=== PATIENT | female | born 1945 | race Asian ===

== ENCOUNTER → 2020-08-15 09:30 | Outpatient (CLI) | payer MEDICARE, SELFPAY ==
--- NOTE | 2020-08-15 | DI.MRI.S_ITS ---
PROCEDURE: MR HEAD/BRAIN WO/W CON INDICATIONS: BELLS PALSY TECHNIQUE: Noncontrast sagittal T1 spin echo, axial T2 fast spin echo, axial FLAIR, axial gradient echo, axial diffusion and ADC through the brain. Axial/sagittal/coronal 3-D CISS, thin-slice axial T1 spin echo with fat saturation through the skull base. After the administration of contrast, axial and coronal thin-slice T1 spin echo with fat saturation through the skull base, axial T1 spin echo with fat saturation through the brain. COMPARISON: None. FINDINGS: Image quality: Excellent. Cranial nerves: No cranial nerve mass or abnormal enhancement is present. No skull base meningioma is found. However, note is made of prominent ectasia of the right and left vertebral arteries which are elongated and curve strongly rightward and then traverse right anterolateral towards the midline impinging on the right lower and middle thirds of the brainstem before extending cephalad at the midline into the basilar artery. CSF spaces: Ventricles are normal in size and shape. No extra-axial fluid collections. Basal cisterns are patent. Brain: No intracranial bleeds or mass effects. No abnormal intracranial enhancement. Diffusion weighted images show no acute ischemic insults. Ibanez-white matter interface is intact. Brainstem is normal. Normal intravascular flow voids are present. Skull and face: Calvarial marrow signal is normal. Orbits appear normal. Sinuses: Sinuses and mastoids appear clear. IMPRESSION: No mass lesion found suggestive of meningioma at the skull base, no abnormal enhancement or mass involves the skull base cranial nerves. There is, however, prominent ectasia and tortuosity of the vertebral arteries which measure up to 7-8 mm in maximal axial dimension curving rightward and then anteriorly along the right lower and mid brainstem, likely impinging mildly on the immediate adjacent right-sided cranial nerves as a potential etiology for current symptomatology. Dictated by: Hank Blanco M.D. on 08/15/2020 at 11:03 Approved by: Hank Blanco M.D. on 08/15/2020 at 11:08
[2020-08-15 11:16] LABS: Add Manual Diff / Slide Review NO; Basophils Absolute Auto 100 /uL (0-100); Basophils Percent Auto 1.2 % (0-2); Eosinophils Absolute Auto 100 /uL (0-450); Eosinophils Percent Auto 1.9 % (2-4); Hematocrit 41.5 % (36-46); Hemoglobin 13.7 g/dL (12.0-16.0); Lymphocytes Absolute Auto 900 /uL (1100-4500); Lymphocytes Percent Auto 18.2 % (25-40); Mean Corpuscular HGB Conc 32.9 % (30-36); Mean Corpuscular Hemoglobin 31.2 PG (26-34); Mean Corpuscular Volume 94.9 fL (80-100); Monocytes Absolute Auto 300 /uL (0-900); Monocytes Percent Auto 5.5 % (3-14); Neutrophils Absolute Auto 3500 /uL (1500-7000); Neutrophils Percent Auto 73.2 % (50-75); Platelet Count 190 X10^3/uL (150-400); Red Blood Cell Count 4.38 X10^6/uL (4.0-5.2); Red Cell Distribution Width 14.2 % (11.6-14.8); White Blood Cell Count 4.7 X10^3/uL (4.5-11.0)
[2020-08-15 11:27] LABS: Alanine Aminotransferase 19 IU/L (<35); Albumin 4.3 g/dL (3.5-5.0); Albumin Globulin Ratio 1.4 (1.0-2.8); Alkaline Phosphatase 94 U/L (38-126); Aspartate Aminotransferase 28 IU/L (14-36); BUN Creatinine Ratio 21.1 (6-22); Bilirubin Total 0.7 mg/dL (0.2-1.3); Blood Urea Nitrogen 16 mg/dL (7-17); Calcium 9.3 mg/dL (8.4-10.2); Carbon Dioxide 32 mmol/L (22-32); Chloride 106 mmol/L (98-107); Cholesterol 173 mg/dL (140-199); Estimated Glomerular Filt Rate > 60.0 mL/min (>60); Glucose 99 mg/dL (80-110); HDL Cholesterol 69 mg/dL (40-60); HEMOLYSIS < 15 (0-50); LDL Cholesterol Calculated 78 mg/dL (<100); Potassium 4.2 mmol/L (3.4-5.1); Sodium 141 mmol/L (137-145); Total Protein 7.3 g/dL (6.3-8.2); Triglycerides 131 mg/dL (35-150)
[2020-08-15 12:01] LABS: Vitamin D 25 Hydroxy (D3) 47.6 ng/mL (30.0-100.0)
[2020-08-15 12:02] LABS: Ferritin 60 ng/mL (11-264)
[2020-08-15 12:16] LABS: Thyroid Stimulating Hormone 1.22 uIU/mL (0.47-4.68)
[2020-08-16 07:09] LABS: Triiodothyronine T3 Total 121 ng/dL (71-180)
== END ==
PROVIDERS: PCP Internal Medicine; Referring Provider Internal Medicine; Visit Provider Internal Medicine
DX: G51.0 Bell's palsy (principal); I77.1 Stricture of artery; E55.9 Vitamin D deficiency, unspecified; K59.00 Constipation, unspecified; L65.9 Nonscarring hair loss, unspecified; Z13.220 Encounter for screening for lipoid disorders
CPT/HCPCS: 36415; 70553; 80053; 80061; 82306; 82728; 84436; 84443; 84480; 85025

== ENCOUNTER → 2021-07-14 11:36 | Outpatient (CLI) | payer MEDICARE, SELFPAY ==
--- NOTE | 2021-07-14 | DI.MG.S_ITS ---
BILATERAL DIGITAL SCREENING MAMMOGRAM 3D/2D WITH CAD: 07/14/2021 CLINICAL: Routine screening. Comparison is made to exams dated: 11/13/2016 mammogram, 11/18/2017 mammogram, 12/31/2018 mammogram, and 05/02/2020 mammogram - outside facility. The tissue of both breasts is heterogeneously dense. This may lower the sensitivity of mammography. Current study was also evaluated with a Computer Aided Detection (CAD) system. No significant masses, calcifications, or other findings are seen in either breast. There has been no significant interval change. IMPRESSION: NEGATIVE There is no mammographic evidence of malignancy. A 1 year screening mammogram is recommended. This exam was interpreted at Station ID: [id number]. NOTE: For mammograms, a report in lay terms will be sent to the patient. Approximately 15% of breast malignancies will not be visualized mammographically. In the management of a palpable breast mass, a negative mammogram must not discourage biopsy of a clinically suspicious lesion. Electronically Signed By: Devon olsen/carie:07/16/2021 09:08:42 letter sent: Normal Exam ACR BI-RADS Category 1: Negative [id number]
== END ==
PROVIDERS: PCP Internal Medicine; Referring Provider Internal Medicine; Visit Provider Internal Medicine
DX: Z12.31 Encounter for screening mammogram for malignant neoplasm of breast (principal)
CPT/HCPCS: 77063; 77067

== ENCOUNTER → 2021-08-27 17:31 | Outpatient (CLI) | payer MEDICARE, SELFPAY ==
--- NOTE | 2021-08-27 17:33 | DI.MRI.S_ITS ---
PROCEDURE: MR HEAD/BRAIN WO/W CON INDICATIONS: Weakness TECHNIQUE: Noncontrast axial T1 spin echo, axial T2 fast spin echo, sagittal and axial FLAIR, coronal T2 fast spin echo, axial gradient echo, axial diffusion and ADC through the brain. After the administration of contrast, axial and coronal T1 spin echo with fat saturation through the brain. COMPARISON: [facility], MR, MR HEAD/BRAIN WO/W CON, 08/15/2020, 10:03. FINDINGS: Image quality: Excellent. CSF spaces: There is mild cerebral volume loss with prominence of the ventricles and sulci. Basal cisterns are patent. No extra-axial fluid collections. Brain: Diffusion-weighted images demonstrate no acute infarcts. No intracranial hemorrhage, mass, or mass effect. The aragon-white matter junction appears preserved. There are scattered subcortical and periventricular foci of white matter T2 hyperintensity consistent with mild chronic small vessel ischemic changes. The brainstem appears within normal limits. No abnormal intracranial enhancement. Skull and face: Calvarial marrow is normal in signal. Orbits appear normal. Sinuses: Visualized paranasal sinuses demonstrate mild mucosal thickening within the ethmoid sinuses. The mastoid air cells are clear. IMPRESSION: 1. No acute intracranial abnormality. 2. Mild chronic white matter small vessel ischemic changes and cerebral volume loss. Dictated by: Kennedy Flores M.D. on 08/28/2021 at 7:51 Approved by: Kennedy Flores M.D. on 08/28/2021 at 7:54
== END ==
PROVIDERS: PCP Internal Medicine; Referring Provider Internal Medicine; Visit Provider Internal Medicine
DX: R53.1 Weakness; I67.9 Cerebrovascular disease, unspecified
CPT/HCPCS: 70553; A9579

== ENCOUNTER → 2021-09-28 17:49 | Outpatient (CLI) | payer MEDICARE, SELFPAY ==
--- NOTE | 2021-09-28 | DI.MRI.S_ITS ---
PROCEDURE: MR LUMBAR SPINE WO CON INDICATIONS: Radiculopathy, lumbar region TECHNIQUE: Noncontrast sagittal T1 spin echo and T2 fast echo, sagittal STIR, axial T1 and T2 fast spin echo through the lumbar spine. In cases with scoliosis, additional coronal T2 fast spin echo may be performed. COMPARISON: None. FINDINGS: Image quality: Excellent. Alignment and Curvature: Mild dextrocurvature and rightward displacement of L2 related to L3. There is grade 1 retrolisthesis of L2 on L3 measuring approximately 8 mm. There is trace retrolisthesis of L3 on L4. Bone Marrow: Marrow is of normal overall signal. No acute vertebral body compression fractures. Spinal Cord: Conus medullaris terminates at the T12-L1 level. Visualized cord demonstrates normal signal and size. Paraspinous Soft Tissues: No paravertebral masses. T12-L1: Minimal disc bulge. No canal stenosis or foraminal stenosis. L1-L2: Mild disc bulge. No canal stenosis or foraminal stenosis. L2-L3: 8 mm retrolisthesis of L2 on L3. Severe disc height loss. Posterior osteophyte plus minimal disc. Facet hypertrophy. Mild canal stenosis. Mild right and hxja-ph-ipujdqyp left foraminal stenosis. L3-L4: Minimal retrolisthesis of L3 on L4. Diffuse disc bulge. Facet hypertrophy. Moderate canal stenosis is underestimated secondary to axial angle choice. L4-L5: Moderate to severe disc height loss. Disc bulge. Facet hypertrophy. Mild canal stenosis. Iweg-ih-wzvzjzgq bilateral foraminal stenosis. L5-S1: Disc bulge. Bilateral facet hypertrophy, left greater than right. Mild bilateral foraminal narrowing. IMPRESSION: 1. Diffuse degenerative change. 2. Canal stenosis is mild at L2-L3, moderate at L3-L4, and mild at L4-L5. 3. Multilevel foraminal narrowing as described above. 4. Multilevel facet arthropathy. Dictated by: Roldan Chavez M.D. on 10/01/2021 at 8:21 Approved by: Roladn Chavez M.D. on 10/01/2021 at 8:28
== END ==
PROVIDERS: PCP Internal Medicine; Referring Provider Psychiatry & Neurology Neurology; Visit Provider Psychiatry & Neurology Neurology
DX: M54.16 Radiculopathy, lumbar region (principal); M48.061 Spinal stenosis, lumbar region without neurogenic claudication; M48.07 Spinal stenosis, lumbosacral region; M47.816 Spondylosis without myelopathy or radiculopathy, lumbar region; M47.817 Spondylosis without myelopathy or radiculopathy, lumbosacral region
CPT/HCPCS: 72148

== ENCOUNTER 2021-10-31 16:45 | Outpatient (RCR) | payer MEDICARE, SELFPAY ==
--- NOTE | 2021-10-10 17:30 | PT.OPPOC ---
Physical, Occupational & Speech Therapy At [facility] Current Diagnoses Stiffness of other specified joint, not elsewhere classified (10/10/21) Lumbago with sciatica, right side (10/10/21) Weakness (10/10/21) Visit Care Team Role Provider Type Rosa Hull MD Attending Provider Physician Family Provider Primary Care Provider Referring Provider Specialty: Internal Medicine Address: [address] [place] [address], [facility] Email: [email or web address] Plan Of Care PT-OP-T Assessment and Plan Start: 10/10/21 17:37 Freq: Status: Active Protocol: Document 10/10/21 16:45 DCW (Rec: 10/11/21 14:09 DCW [id number]) Physical Therapy Assessment Rehab Potential Rehabilitation Potential Good Evaluation Complexity Number of Personal Factors/Comorbidities 1-2 Number of Body Systems Impaired 1-2 Clinical Presentation at Evaluation Stable Impairments Impairments Functional Activities, Functional Mobility,Pain,ROM, Soft Tissue Mobility,Strength, Tone Goals Two Impairment Pt displays weakness in R hip IR/ER Long-Term Goal (LTG) Pt to increase R hip MMT to at least 4+ in all planes to improve stability and confidence when ascending/ descending stairs LTG Duration 12/08/21 One Impairment Pt experiencing radicular R LE pain with sitting longer than 30 min 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 Pt Pt has moderate muscle tone in right QL and piriformis, as well as an MRI showing mild-moderate stenosis and multiple disc bulges. Pt reported relief with manual traction, as well as noted decreased symptoms after QL and piriformis stretching. Pt will likely benefit from continued therapy focusing on STM, flexibility, strengthening, and traction. Physical Therapy Plan Frequency and Duration Frequency of Treatment 1-2x/week Duration of Treatment Two months Plan of Care Start Date 10/10/21 Plan of Care End Date 12/08/21 Therapeutic Interventions Therapeutic Interventions Aquatic Therapy,Home Exercise Program,Joint Mobilizations, Manual Therapy,Patient/ Caregiver Education,Self-Care/ Home Management,Therapeutic Activities,Therapeutic Exercises Modalities Cold Pack/Ice Massage,Electric Stimulation,Hot Packs, Traction- Mechanical, Ultrasound Next Visit Focus/Plan Next Note Type Treatment Note Next Visit Plan Stretching, strengthening, traction Plan of Care Dates Plan of Care Start Date 10/10/21 Plan of Care End Date 12/08/21 Electronically Signed by: Uriah Montenegro, PT 10/11/21 1411 Please Sign and Return: I have reviewed this Plan of Care and certify that the skilled therapy services above are required to meet the patient?s needs. Physician Signature Date Printed Name and Credentials Clinical Instructor Signature Printed Name and Credentials
--- NOTE | 2021-10-10 17:30 | PT.OIE ---
Current Diagnoses Stiffness of other specified joint, not elsewhere classified (10/10/21) Lumbago with sciatica, right side (10/10/21) Weakness (10/10/21) Visit Care Team Role Provider Type Rosa Hull MD Attending Provider Physician Family Provider Primary Care Provider Referring Provider Specialty: Internal Medicine Address: [address] [place] [address], [id number] Email: [email or web address] Initial Evaluation PT-OP-A Visit Information Start: 10/10/21 17:37 Freq: Status: Active Protocol: Document 10/10/21 16:45 DCW (Rec: 10/10/21 17:49 DCW [id number]) Out-Patient Physical Therapy Visit Information Visit Information Visit Type Initial Evaluation Visit Start Time 16:45 Visit Stop Time 17:30 Total Visit Minutes 45 Visit Number 1 Number of QUANTITATIVE ASSOCIATE Visits 0 Evaluation Information Evaluation Date 10/10/21 PT-OP-B Current Condition Start: 10/10/21 17:37 Freq: Status: Active Protocol: Document 10/10/21 16:45 DCW (Rec: 10/10/21 17:49 DCW [id number]) Current Condition History of Current Condition Onset Date June 2021 Current Complaints Right leg pain and weakness History of Current Condition Pt is a 76 year old female presenting with low back and right leg pain. Pt notes that she was on a cross[place]country flight in June, and began getting pain and stiffness during the flight. Pt notes she has a history of low back pain, but it typically goes away after a few hours, and this has been sustained for the last three months. Was seen for one visit at [facility] earlier this month, and received some good home exercises, but was unable to work with their scheduling due to her need for late appointments. Pt also notes she got an exercise online that helped, and demonstrates sciatic flossing. Admits her right leg is kind of weak. Notes she did receive an MRI two weeks ago, but has not heard anything about the results yet. Prior Treatments and Tests Lumbar MRI: IMPRESSION: 1. Diffuse degenerative change. 2 . Canal stenosis is mild at L2 -L3, moderate at L3-L4, and mild at L4-L5. 3. Multilevel foraminal narrowing as described above. 4. Multilevel facet arthropathy. per Roldan Chavez M.D. on 2021 Treatment Goals Patient/Caregiver Goals Eliminate right leg pain PT-OP-C Subjective Start: 10/10/21 17:37 Freq: Status: Active Protocol: Document 10/10/21 16:45 DCW (Rec: 10/10/21 17:53 DCW [id number]) OP-PT Subjective Patient Comments Patient Comments Is this sort of thing even fixable? Patient Reported Progress Improving OP-PT Pain Assessment Pain Assessment Grid Paper Pain Assessment Grid Completed Yes Location Right Posterior Lateral Hip Intensity 4 Scale Used Numeric (0 - 10) Description Shooting,Spasm PT-OP-F Manual Assessment Start: 10/10/21 17:37 Freq: Status: Active Protocol: Document 10/10/21 16:45 DCW (Rec: 10/11/21 13:55 DCW [id number]) Manual Assessments Soft Tissue Assessment Soft Tissue Mobility Assessment Moderate tone with tenderness to palpation 2/4: Pain with wincing along right QL and piriformis Joint Mobility Assessment Joint Mobility Assessment Hypomobility with joint mobilization on L1-5 PT-OP-K Range of Motion Start: 10/10/21 17:37 Freq: Status: Active Protocol: Document 10/10/21 16:45 DCW (Rec: 10/11/21 13:55 DCW [id number]) Lumbar Spine Range of Motion Lumbar Spine Active Percentage Testing Position Standing Flexion 60 Extension 80 Lateral Flexion Left 90 Lateral Flexion Right 90 ROM Limitations Bony Restriction Comments Limited lumbar flexion, compensatory mobility through bilateral hips when bending forward PT-OP-L Special Tests Start: 10/10/21 17:37 Freq: Status: Active Protocol: Document 10/10/21 16:45 DCW (Rec: 10/11/21 13:55 DCW [id number]) Special Tests Lumbar Spine Special Tests Straight Leg Raise Test Results Negative Slump Test Results Negative Manual Traction Test Results Pt notes improvement A-P Shearing Test Results Negative Hip Special Tests Piriformis Test Results Mild soreness, no replication of symptoms Tripod Sign Test Results Negative EDIS Test Results Negative PT-OP-M Strength Start: 10/10/21 17:37 Freq: Status: Active Protocol: Document 10/10/21 16:45 DCW (Rec: 10/11/21 13:55 DCW [id number]) Hip Strength Hip Manual Muscle Testing Right Flexion (L2) 4+ Good+ Abduction 4- Good- Adduction 4+ Good+ External Rotation 4- Good- Internal Rotation 4- Good- Left Flexion (L2) 4+ Good+ Abduction 4+ Good+ Adduction 4+ Good+ External Rotation 4+ Good+ Internal Rotation 4+ Good+ PT-OP-Q Treatments Start: 10/10/21 17:37 Freq: Status: Active Protocol: Document 10/10/21 16:45 DCW (Rec: 10/10/21 17:51 DCW [id number]) Therapeutic Exercises Sitting Exercises 2 Sitting Exercise Name Lateral trunk flexion stretch Side bilateral 1 Sitting Exercise Name Seated figure-4 Side bilateral PT-OP-T Assessment and Plan Start: 10/10/21 17:37 Freq: Status: Active Protocol: Document 10/10/21 16:45 DCW (Rec: 10/11/21 14:09 DCW [id number]) Physical Therapy Assessment Rehab Potential Rehabilitation Potential Good Evaluation Complexity Number of Personal Factors/Comorbidities 1-2 Number of Body Systems Impaired 1-2 Clinical Presentation at Evaluation Stable Impairments Impairments Functional Activities, Functional Mobility,Pain,ROM, Soft Tissue Mobility,Strength, Tone Goals Two Impairment Pt displays weakness in R hip IR/ER Intermediate Goal (LTG) Pt to increase R hip MMT to at least 4+ in all planes to improve stability and confidence when ascending/ descending stairs LTG Duration 12/08/21 One Impairment Pt experiencing radicular R LE pain with sitting longer than 30 min 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 Pt Pt has moderate muscle tone in right QL and piriformis, as well as an MRI showing mild-moderate stenosis and multiple disc bulges. Pt reported relief with manual traction, as well as noted decreased symptoms after QL and piriformis stretching. Pt will likely benefit from continued therapy focusing on STM, flexibility, strengthening, and traction. Physical Therapy Plan Frequency and Duration Frequency of Treatment 1-2x/week Duration of Treatment Two months Plan of Care Start Date 10/10/21 Plan of Care End Date 12/08/21 Therapeutic Interventions Therapeutic Interventions Aquatic Therapy,Home Exercise Program,Joint Mobilizations, Manual Therapy,Patient/ Caregiver Education,Self-Care/ Home Management,Therapeutic Activities,Therapeutic Exercises Modalities Cold Pack/Ice Massage,Electric Stimulation,Hot Packs, Traction- Mechanical, Ultrasound Next Visit Focus/Plan Next Note Type Treatment Note Next Visit Plan Stretching, strengthening, traction
--- NOTE | 2021-10-16 17:32 | PT.OTN ---
Current Diagnoses Stiffness of other specified joint, not elsewhere classified (10/16/21) Lumbago with sciatica, right side (10/16/21) Weakness (10/16/21) Physical Therapy Treatment Note PT-OP-A Visit Information Start: 10/10/21 17:37 Freq: Status: Active Protocol: Document 10/16/21 16:51 DCW (Rec: 10/16/21 17:32 DCW [id number]) Out-Patient Physical Therapy Visit Information Visit Information Visit Type Treatment Note Visit Start Time 16:51 Visit Stop Time 17:30 Total Visit Minutes 39 Visit Number 2 Number of SCRAP HOIST OPERATOR Visits 0 Evaluation Information Evaluation Date 10/10/21 PT-OP-B Current Condition Start: 10/10/21 17:37 Freq: Status: Active Protocol: Document 10/10/21 16:45 DCW (Rec: 10/10/21 17:49 DCW [id number]) Current Condition History of Current Condition Onset Date June 2021 Current Complaints Right leg pain and weakness History of Current Condition Pt is a 76 year old female presenting with low back and right leg pain. Pt notes that she was on a cross-country flight in June, and began getting pain and stiffness during the flight. Pt notes she has a history of low back pain, but it typically goes away after a few hours, and this has been sustained for the last three months. Was seen for one visit at [facility] earlier this month, and received some good home exercises, but was unable to work with their scheduling due to her need for late appointments. Pt also notes she got an exercise online that helped, and demonstrates sciatic flossing. Admits her right leg is kind of weak. Notes she did receive an MRI two weeks ago, but has not heard anything about the results yet. Prior Treatments and Tests Lumbar MRI: IMPRESSION: 1. Diffuse degenerative change. 2 . Canal stenosis is mild at L2 -L3, moderate at L3-L4, and mild at L4-L5. 3. Multilevel foraminal narrowing as described above. 4. Multilevel facet arthropathy. per Roldan Chavez M.D. on 2021 Treatment Goals Patient/Caregiver Goals Eliminate right leg pain PT-OP-C Subjective Start: 10/10/21 17:37 Freq: Status: Active Protocol: Document 10/16/21 16:51 DCW (Rec: 10/16/21 17:32 DCW [id number]) OP-PT Subjective Patient Comments Patient Comments Pt reports she has been doing her stretching every day, and it has been helping. PT-OP-F Manual Assessment Start: 10/10/21 17:37 Freq: Status: Active Protocol: Document 10/10/21 16:45 DCW (Rec: 10/11/21 13:55 DCW [id number]) Manual Assessments Soft Tissue Assessment Soft Tissue Mobility Assessment Moderate tone with tenderness to palpation 2/4: Pain with wincing along right QL and piriformis Joint Mobility Assessment Joint Mobility Assessment Hypomobility with joint mobilization on L1-5 PT-OP-K Range of Motion Start: 10/10/21 17:37 Freq: Status: Active Protocol: Document 10/10/21 16:45 DCW (Rec: 10/11/21 13:55 DCW [id number]) Lumbar Spine Range of Motion Lumbar Spine Active Percentage Testing Position Standing Flexion 60 Extension 80 Lateral Flexion Left 90 Lateral Flexion Right 90 ROM Limitations Bony Restriction Comments Limited lumbar flexion, compensatory mobility through bilateral hips when bending forward PT-OP-L Special Tests Start: 10/10/21 17:37 Freq: Status: Active Protocol: Document 10/10/21 16:45 DCW (Rec: 10/11/21 13:55 DCW [id number]) Special Tests Lumbar Spine Special Tests Straight Leg Raise Test Results Negative Slump Test Results Negative Manual Traction Test Results Pt notes improvement A-P Shearing Test Results Negative Hip Special Tests Piriformis Test Results Mild soreness, no replication of symptoms Tripod Sign Test Results Negative EDIS Test Results Negative PT-OP-M Strength Start: 10/10/21 17:37 Freq: Status: Active Protocol: Document 10/10/21 16:45 DCW (Rec: 10/11/21 13:55 DCW [id number]) Hip Strength Hip Manual Muscle Testing Right Flexion (L2) 4+ Good+ Abduction 4- Good- Adduction 4+ Good+ External Rotation 4- Good- Internal Rotation 4- Good- Left Flexion (L2) 4+ Good+ Abduction 4+ Good+ Adduction 4+ Good+ External Rotation 4+ Good+ Internal Rotation 4+ Good+ PT-OP-Q Treatments Start: 10/10/21 17:37 Freq: Status: Active Protocol: Document 10/16/21 16:51 DCW (Rec: 10/16/21 17:32 DCW [id number]) Therapeutic Exercises Sidelying Exercises 1 Sidelying Exercise Name Reverse clamshell Standing Exercises 1 Standing Exercise Name Hip extension Side bilateral Resistance Red Equipment Used T-band Other Exercises 1 Other Exercise Name Resisted side-stepping, forward, backward Resistance Red Equipment Used T-band Manual Therapy Treatment Soft Tissue Mobilization 1 Body Location R piriformis Mobilization Type Strumming,Sustained Pressure Manual Traction Lumbar Details Long-axis LE traction PT-OP-T Assessment and Plan Start: 10/10/21 17:37 Freq: Status: Active Protocol: Document 10/16/21 16:51 DCW (Rec: 10/16/21 17:32 DCW [id number]) Physical Therapy Assessment Impairments Impairments Functional Activities, Functional Mobility,Pain,ROM, Soft Tissue Mobility,Strength, Tone Goals Two Impairment Pt displays weakness in R hip IR/ER Bridge Builder Goal (LTG) Pt to increase R hip MMT to at least 4+ in all planes to improve stability and confidence when ascending/ descending stairs LTG Duration 12/08/21 One Impairment Pt experiencing radicular R LE pain with sitting longer than 30 min Half-Way Goal (LTG) Pt to report ability to drive to [place] without increased radicular symptoms LTG Duration 12/08/21 Assessment Summary Assessment Pt progressing well with hip and low back mobility, very compliant with HEP, performing stretching and strengthening regularly. Noticeable improvement with tone today following STM. Physical Therapy Plan Frequency and Duration Frequency of Treatment 1-2x/week Duration of Treatment Two months Plan of Care Start Date 10/10/21 Plan of Care End Date 12/08/21 Therapeutic Interventions Therapeutic Interventions Aquatic Therapy,Home Exercise Program,Joint Mobilizations, Manual Therapy,Patient/ Caregiver Education,Self-Care/ Home Management,Therapeutic Activities,Therapeutic Exercises Modalities Cold Pack/Ice Massage,Electric Stimulation,Hot Packs, Traction- Mechanical, Ultrasound Next Visit Focus/Plan Next Note Type Treatment Note Next Visit Plan Stretching, strengthening, traction
--- NOTE | 2021-10-23 17:34 | PT.OTN ---
Current Diagnoses Stiffness of other specified joint, not elsewhere classified (10/23/21) Lumbago with sciatica, right side (10/23/21) Weakness (10/23/21) Physical Therapy Treatment Note PT-OP-A Visit Information Start: 10/10/21 17:37 Freq: Status: Active Protocol: Document 10/23/21 16:45 DCW (Rec: 10/23/21 17:34 DCW [id number]) Out-Patient Physical Therapy Visit Information Visit Information Visit Type Treatment Note Visit Start Time 16:45 Visit Stop Time 17:30 Total Visit Minutes 45 Visit Number 3 Number of LEAD JAVA PROGRAMMER Visits 0 Evaluation Information Evaluation Date 10/10/21 PT-OP-B Current Condition Start: 10/10/21 17:37 Freq: Status: Active Protocol: Document 10/10/21 16:45 DCW (Rec: 10/10/21 17:49 DCW [id number]) Current Condition History of Current Condition Onset Date June 2021 Current Complaints Right leg pain and weakness History of Current Condition Pt is a 76 year old female presenting with low back and right leg pain. Pt notes that she was on a cross[place]country flight in June, and began getting pain and stiffness during the flight. Pt notes she has a history of low back pain, but it typically goes away after a few hours, and this has been sustained for the last three months. Was seen for one visit at [facility] earlier this month, and received some good home exercises, but was unable to work with their scheduling due to her need for late appointments. Pt also notes she got an exercise online that helped, and demonstrates sciatic flossing. Admits her right leg is kind of weak. Notes she did receive an MRI two weeks ago, but has not heard anything about the results yet. Prior Treatments and Tests Lumbar MRI: IMPRESSION: 1. Diffuse degenerative change. 2 . Canal stenosis is mild at L2 -L3, moderate at L3-L4, and mild at L4-L5. 3. Multilevel foraminal narrowing as described above. 4. Multilevel facet arthropathy. per Roldan Chavez M.D. on 2021 Treatment Goals Patient/Caregiver Goals Eliminate right leg pain PT-OP-C Subjective Start: 10/10/21 17:37 Freq: Status: Active Protocol: Document 10/23/21 16:45 DCW (Rec: 10/23/21 17:34 DCW [id number]) OP-PT Subjective Patient Comments Patient Comments Pt noticing some improvement, experiencing R leg pain/ weakness much less frequrently . PT-OP-F Manual Assessment Start: 10/10/21 17:37 Freq: Status: Active Protocol: Document 10/10/21 16:45 DCW (Rec: 10/11/21 13:55 DCW [id number]) Manual Assessments Soft Tissue Assessment Soft Tissue Mobility Assessment Moderate tone with tenderness to palpation 2/4: Pain with wincing along right QL and piriformis Joint Mobility Assessment Joint Mobility Assessment Hypomobility with joint mobilization on L1-5 PT-OP-K Range of Motion Start: 10/10/21 17:37 Freq: Status: Active Protocol: Document 10/10/21 16:45 DCW (Rec: 10/11/21 13:55 DCW [id number]) Lumbar Spine Range of Motion Lumbar Spine Active Percentage Testing Position Standing Flexion 60 Extension 80 Lateral Flexion Left 90 Lateral Flexion Right 90 ROM Limitations Bony Restriction Comments Limited lumbar flexion, compensatory mobility through bilateral hips when bending forward PT-OP-L Special Tests Start: 10/10/21 17:37 Freq: Status: Active Protocol: Document 10/10/21 16:45 DCW (Rec: 10/11/21 13:55 DCW [id number]) Special Tests Lumbar Spine Special Tests Straight Leg Raise Test Results Negative Slump Test Results Negative Manual Traction Test Results Pt notes improvement A-P Shearing Test Results Negative Hip Special Tests Piriformis Test Results Mild soreness, no replication of symptoms Tripod Sign Test Results Negative EDIS Test Results Negative PT-OP-M Strength Start: 10/10/21 17:37 Freq: Status: Active Protocol: Document 10/10/21 16:45 DCW (Rec: 10/11/21 13:55 DCW [id number]) Hip Strength Hip Manual Muscle Testing Right Flexion (L2) 4+ Good+ Abduction 4- Good- Adduction 4+ Good+ External Rotation 4- Good- Internal Rotation 4- Good- Left Flexion (L2) 4+ Good+ Abduction 4+ Good+ Adduction 4+ Good+ External Rotation 4+ Good+ Internal Rotation 4+ Good+ PT-OP-Q Treatments Start: 10/10/21 17:37 Freq: Status: Active Protocol: Document 10/23/21 16:45 DCW (Rec: 10/23/21 17:34 [facility] [id number]) Therapeutic Exercises Standing Exercises 1 Standing Exercise Name Hip extension Side bilateral Resistance Red Equipment Used T-band Other Exercises 2 Other Exercise Name Hip ER/IR /c knee on stool Side bilateral Resistance Red Equipment Used T-band 1 Other Exercise Name Resisted side-stepping, forward, backward Resistance Red Equipment Used T-band Manual Therapy Treatment Soft Tissue Mobilization 1 Body Location R piriformis Mobilization Type Strumming,Sustained Pressure Manual Traction Lumbar Details Long-axis LE traction PT-OP-T Assessment and Plan Start: 10/10/21 17:37 Freq: Status: Active Protocol: Document 10/23/21 16:45 DCW (Rec: 10/23/21 17:34 [facility] [id number]) Physical Therapy Assessment Impairments Impairments Functional Activities, Functional Mobility,Pain,ROM, Soft Tissue Mobility,Strength, Tone Goals Two Impairment Pt displays weakness in R hip IR/ER Manager Money Goal (LTG) Pt to increase R hip MMT to at least 4+ in all planes to improve stability and confidence when ascending/ descending stairs LTG Duration 12/08/21 One Impairment Pt experiencing radicular R LE pain with sitting longer than 30 min Custodial Goal (LTG) Pt to report ability to drive to [place] without increased radicular symptoms LTG Duration 12/08/21 Assessment Summary Assessment Pt making good progress so far , admits she feels more confident that she is going to resolve her pain, and know what to do if it comes back. Physical Therapy Plan Frequency and Duration Frequency of Treatment 1-2x/week Duration of Treatment Two months Plan of Care Start Date 10/10/21 Plan of Care End Date 12/08/21 Therapeutic Interventions Therapeutic Interventions Aquatic Therapy,Home Exercise Program,Joint Mobilizations, Manual Therapy,Patient/ Caregiver Education,Self-Care/ Home Management,Therapeutic Activities,Therapeutic Exercises Modalities Cold Pack/Ice Massage,Electric Stimulation,Hot Packs, Traction- Mechanical, Ultrasound Next Visit Focus/Plan Next Note Type Treatment Note Next Visit Plan Stretching, strengthening, traction
--- NOTE | 2021-10-31 17:32 | PT.OTN ---
Current Diagnoses Stiffness of other specified joint, not elsewhere classified (10/31/21) Lumbago with sciatica, right side (10/31/21) Weakness (10/31/21) Physical Therapy Treatment Note PT-OP-A Visit Information Start: 10/10/21 17:37 Freq: Status: Active Protocol: Document 10/31/21 16:46 DCW (Rec: 10/31/21 17:32 DCW [id number]) Out-Patient Physical Therapy Visit Information Visit Information Visit Type Treatment Note Visit Start Time 16:46 Visit Stop Time 17:30 Total Visit Minutes 44 Visit Number 4 Number of MOISTURE TESTER Visits 0 Evaluation Information Evaluation Date 10/10/21 PT-OP-B Current Condition Start: 10/10/21 17:37 Freq: Status: Active Protocol: Document 10/10/21 16:45 DCW (Rec: 10/10/21 17:49 DCW [id number]) Current Condition History of Current Condition Onset Date June 2021 Current Complaints Right leg pain and weakness History of Current Condition Pt is a 76 year old female presenting with low back and right leg pain. Pt notes that she was on a cross[place]country flight in June, and began getting pain and stiffness during the flight. Pt notes she has a history of low back pain, but it typically goes away after a few hours, and this has been sustained for the last three months. Was seen for one visit at [facility] earlier this month, and received some good home exercises, but was unable to work with their scheduling due to her need for late appointments. Pt also notes she got an exercise online that helped, and demonstrates sciatic flossing. Admits her right leg is kind of weak. Notes she did receive an MRI two weeks ago, but has not heard anything about the results yet. Prior Treatments and Tests Lumbar MRI: IMPRESSION: 1. Diffuse degenerative change. 2 . Canal stenosis is mild at L2 -L3, moderate at L3-L4, and mild at L4-L5. 3. Multilevel foraminal narrowing as described above. 4. Multilevel facet arthropathy. per Roldan Chavez M.D. on 2021 Treatment Goals Patient/Caregiver Goals Eliminate right leg pain PT-OP-C Subjective Start: 10/10/21 17:37 Freq: Status: Active Protocol: Document 10/31/21 16:46 DCW (Rec: 10/31/21 17:32 DCW [id number]) OP-PT Subjective Patient Comments Patient Comments There's still just a slightly sore feeling sometimes. It used to be it was pretty bad when I got [place] in [place], but now Idon't need ot worry about that. PT-OP-F Manual Assessment Start: 10/10/21 17:37 Freq: Status: Active Protocol: Document 10/10/21 16:45 DCW (Rec: 10/11/21 13:55 DCW [id number]) Manual Assessments Soft Tissue Assessment Soft Tissue Mobility Assessment Moderate tone with tenderness to palpation 2/4: Pain with wincing along right QL and piriformis Joint Mobility Assessment Joint Mobility Assessment Hypomobility with joint mobilization on L1-5 PT-OP-K Range of Motion Start: 10/10/21 17:37 Freq: Status: Active Protocol: Document 10/10/21 16:45 DCW (Rec: 10/11/21 13:55 DCW [id number]) Lumbar Spine Range of Motion Lumbar Spine Active Percentage Testing Position Standing Flexion 60 Extension 80 Lateral Flexion Left 90 Lateral Flexion Right 90 ROM Limitations Bony Restriction Comments Limited lumbar flexion, compensatory mobility through bilateral hips when bending forward PT-OP-L Special Tests Start: 10/10/21 17:37 Freq: Status: Active Protocol: Document 10/10/21 16:45 DCW (Rec: 10/11/21 13:55 DCW [id number]) Special Tests Lumbar Spine Special Tests Straight Leg Raise Test Results Negative Slump Test Results Negative Manual Traction Test Results Pt notes improvement A-P Shearing Test Results Negative Hip Special Tests Piriformis Test Results Mild soreness, no replication of symptoms Tripod Sign Test Results Negative EDIS Test Results Negative PT-OP-M Strength Start: 10/10/21 17:37 Freq: Status: Active Protocol: Document 10/10/21 16:45 DCW (Rec: 10/11/21 13:55 DCW [id number]) Hip Strength Hip Manual Muscle Testing Right Flexion (L2) 4+ Good+ Abduction 4- Good- Adduction 4+ Good+ External Rotation 4- Good- Internal Rotation 4- Good- Left Flexion (L2) 4+ Good+ Abduction 4+ Good+ Adduction 4+ Good+ External Rotation 4+ Good+ Internal Rotation 4+ Good+ PT-OP-Q Treatments Start: 10/10/21 17:37 Freq: Status: Active Protocol: Document 10/31/21 16:46 DCW (Rec: 10/31/21 17:32 DCW [id number]) Therapeutic Exercises Standing Exercises 2 Standing Exercise Name Hip Abduction Side bilateral Resistance Red Equipment Used T-band 1 Standing Exercise Name Hip extension Side bilateral Resistance Red Equipment Used T-band Other Exercises 2 Other Exercise Name Hip ER/IR /c knee on stool Side bilateral Resistance Red Equipment Used T-band 1 Other Exercise Name Resisted side-stepping, forward, backward Resistance Red Equipment Used T-band Manual Therapy Treatment Soft Tissue Mobilization 1 Body Location R piriformis Mobilization Type Strumming,Sustained Pressure Manual Traction Lumbar Details Long-axis LE traction PT-OP-T Assessment and Plan Start: 10/10/21 17:37 Freq: Status: Active Protocol: Document 10/31/21 16:46 DCW (Rec: 10/31/21 17:32 DCW [id number]) Physical Therapy Assessment Impairments Impairments Functional Activities, Functional Mobility,Pain,ROM, Soft Tissue Mobility,Strength, Tone Goals Two Impairment Pt displays weakness in R hip IR/ER System Development Engineer Goal (LTG) Pt to increase R hip MMT to at least 4+ in all planes to improve stability and confidence when ascending/ descending stairs LTG Duration 12/08/21 One Impairment Pt experiencing radicular R LE pain with sitting longer than 30 min Fpc Goal (LTG) Pt to report ability to drive to [place] without increased radicular symptoms LTG Duration 12/08/21 Assessment Summary Assessment Pt feeling very good at the moment, no complaints of continued pain. Agreeable with canceling next week's appointment to see if she is able to remain pain-free without therapy. Physical Therapy Plan Frequency and Duration Frequency of Treatment 1-2x/week Duration of Treatment Two months Plan of Care Start Date 10/10/21 Plan of Care End Date 12/08/21 Therapeutic Interventions Therapeutic Interventions Aquatic Therapy,Home Exercise Program,Joint Mobilizations, Manual Therapy,Patient/ Caregiver Education,Self-Care/ Home Management,Therapeutic Activities,Therapeutic Exercises Modalities Cold Pack/Ice Massage,Electric Stimulation,Hot Packs, Traction- Mechanical, Ultrasound Next Visit Focus/Plan Next Note Type Treatment Note Next Visit Plan Stretching, strengthening, traction
--- NOTE | 2021-11-08 17:41 | PT.OPDS ---
Current Diagnoses Stiffness of other specified joint, not elsewhere classified (10/31/21) Lumbago with sciatica, right side (10/31/21) Weakness (10/31/21) Visit Care Team Role Provider Type Rosa Hull MD Attending Provider Physician Family Provider Primary Care Provider Referring Provider Specialty: Internal Medicine [address]: [address] [place] [address], [id number] Email: [email or web address] Visit Number Visit Number 4 Discharge Summary PT-OP-B Current Condition Start: 10/10/21 17:37 Freq: Status: Active Protocol: Document 10/10/21 16:45 DCW (Rec: 10/10/21 17:49 DCW [id number]) Current Condition History of Current Condition Onset Date June 2021 Current Complaints Right leg pain and weakness History of Current Condition Pt is a 76 year old female presenting with low back and right leg pain. Pt notes that she was on a cross[place]country flight in June, and began getting pain and stiffness during the flight. Pt notes she has a history of low back pain, but it typically goes away after a few hours, and this has been sustained for the last three months. Was seen for one visit at [facility] earlier this month, and received some good home exercises, but was unable to work with their scheduling due to her need for late appointments. Pt also notes she got an exercise online that helped, and demonstrates sciatic flossing. Admits her right leg is kind of weak. Notes she did receive an MRI two weeks ago, but has not heard anything about the results yet. Prior Treatments and Tests Lumbar MRI: IMPRESSION: 1. Diffuse degenerative change. 2 . Canal stenosis is mild at L2 -L3, moderate at L3-L4, and mild at L4-L5. 3. Multilevel foraminal narrowing as described above. 4. Multilevel facet arthropathy. per Roldan Chavez M.D. on 2021 Treatment Goals Patient/Caregiver Goals Eliminate right leg pain PT-OP-C Subjective Start: 10/10/21 17:37 Freq: Status: Active Protocol: Document 10/31/21 16:46 DCW (Rec: 10/31/21 17:32 DCW [id number]) OP-PT Subjective Patient Comments Patient Comments There's still just a slightly sore feeling sometimes. It used to be it was pretty bad [place], but now Idon't need ot worry about that. PT-OP-F Manual Assessment Start: 10/10/21 17:37 Freq: Status: Active Protocol: Document 10/10/21 16:45 DCW (Rec: 10/11/21 13:55 DCW [id number]) Manual Assessments Soft Tissue Assessment Soft Tissue Mobility Assessment Moderate tone with tenderness to palpation 2/4: Pain with wincing along right QL and piriformis Joint Mobility Assessment Joint Mobility Assessment Hypomobility with joint mobilization on L1-5 PT-OP-K Range of Motion Start: 10/10/21 17:37 Freq: Status: Active Protocol: Document 10/10/21 16:45 DCW (Rec: 10/11/21 13:55 DCW [id number]) Lumbar Spine Range of Motion Lumbar Spine Active Percentage Testing Position Standing Flexion 60 Extension 80 Lateral Flexion Left 90 Lateral Flexion Right 90 ROM Limitations Bony Restriction Comments Limited lumbar flexion, compensatory mobility through bilateral hips when bending forward PT-OP-L Special Tests Start: 10/10/21 17:37 Freq: Status: Active Protocol: Document 10/10/21 16:45 DCW (Rec: 10/11/21 13:55 DCW [id number]) Special Tests Lumbar Spine Special Tests Straight Leg Raise Test Results Negative Slump Test Results Negative Manual Traction Test Results Pt notes improvement A-P Shearing Test Results Negative Hip Special Tests Piriformis Test Results Mild soreness, no replication of symptoms Tripod Sign Test Results Negative EDIS Test Results Negative PT-OP-M Strength Start: 10/10/21 17:37 Freq: Status: Active Protocol: Document 10/10/21 16:45 DCW (Rec: 10/11/21 13:55 DCW [id number]) Hip Strength Hip Manual Muscle Testing Right Flexion (L2) 4+ Good+ Abduction 4- Good- Adduction 4+ Good+ External Rotation 4- Good- Internal Rotation 4- Good- Left Flexion (L2) 4+ Good+ Abduction 4+ Good+ Adduction 4+ Good+ External Rotation 4+ Good+ Internal Rotation 4+ Good+ PT-OP-T Assessment and Plan Start: 10/10/21 17:37 Freq: Status: Active Protocol: Document 02/24/22 17:39 DCW (Rec: 11/08/21 17:41 DCW [id number]) Physical Therapy Assessment Goals Two Impairment Pt displays weakness in R hip IR/ER Dairy Lab 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 Physical Therapy Plan Discharge Physical Therapy Discharge Reasons Patient Request Next Visit Focus/Plan Next Note Type Discharge Summary
== END 2021-11-09 09:48 | disposition home or self-care (01) ==
LOC: PHYS 16:45
PROVIDERS: Family Provider Internal Medicine; PCP Internal Medicine; Referring Provider Internal Medicine; Visit Provider Internal Medicine
DX: R53.1 Weakness (principal); M54.41 Lumbago with sciatica, right side; M25.69 Stiffness of other specified joint, not elsewhere classified
CPT/HCPCS: 97110; 97140; 97161

== ENCOUNTER → 2022-05-24 11:02 | Outpatient (CLI) | payer MEDICARE, SELFPAY | PROVIDERS: Family Provider Internal Medicine; PCP Internal Medicine; Referring Provider Internal Medicine; Visit Provider Internal Medicine | DX: Z78.0 Asymptomatic menopausal state (principal); M85.88 Other specified disorders of bone density and structure, other site | CPT/HCPCS: 77080 ==

== ENCOUNTER → 2022-07-29 16:25 | Outpatient (CLI) | payer MEDICARE, SELFPAY ==
--- NOTE | 2022-07-29 16:25 | DI.MG.S_ITS ---
BILATERAL DIGITAL SCREENING MAMMOGRAM 3D/2D WITH CAD: 07/29/2022 CLINICAL: Routine screening. Comparison is made to exams dated: 07/14/2021 mammogram - [facility], 05/02/2020 mammogram, and 12/31/2018 mammogram - outside facility. Both breasts are extremely dense, which lowers the sensitivity of mammography (category d />75% glandular tissue). Current study was also evaluated with a Computer Aided Detection (CAD) system. No significant masses, calcifications, or other findings are seen in either breast. There has been no significant interval change. IMPRESSION: NEGATIVE There is no mammographic evidence of malignancy. A 1 year screening mammogram is recommended. Based on the Tyrer Cuzick model (a risk assessment model) the patient's lifetime risk is 9.6% and her 10 year risk is 0.0%. According to the ACR, ACS, and NCCN guidelines, an annual breast MRI exam along with mammogram is recommended if the patient's lifetime risk is 20% or greater. This exam was interpreted at Station ID: [id number]. NOTE: For mammograms, a report in lay terms will be sent to the patient. Approximately 15% of breast malignancies will not be visualized mammographically. In the management of a palpable breast mass, a negative mammogram must not discourage biopsy of a clinically suspicious lesion. Electronically Signed By: Mitzy polo/carie:07/30/2022 11:56:50 letter sent: Normal Exam ACR BI-RADS Category 1: Negative [id number]
== END ==
PROVIDERS: Family Provider Internal Medicine; PCP Internal Medicine; Referring Provider Internal Medicine; Visit Provider Internal Medicine
DX: Z12.31 Encounter for screening mammogram for malignant neoplasm of breast (principal)
CPT/HCPCS: 77063; 77067

== ENCOUNTER 2022-09-23 10:30 | Outpatient (RCR) | payer MEDICARE, SELFPAY ==
--- NOTE | 2022-06-24 17:01 | PT.OIE ---
Current Diagnoses Postural kyphosis, cervicothoracic region (06/24/22) Unspecified kyphosis, cervical region (06/24/22) Cervicalgia (06/24/22) Visit Care Team Role Provider Type Rosa Hull MD Attending Provider Physician Family Provider Primary Care Provider Referring Provider Specialty: Internal Medicine Address: Phone: Fax: Email: Physical Therapy Initial Evaluation PT-OP-A Visit Information Start: 06/18/22 19:18 Freq: Status: Active Protocol: Document 06/24/22 11:18 LRN (Rec: 06/24/22 12:40 LRN [id number]) Out-Patient Physical Therapy Visit Information Visit Information Visit Type Initial Evaluation Visit Start Time 11:18 Visit Stop Time 12:10 Total Visit Minutes 52 Visit Number 1 Evaluation Information Evaluation Date 06/24/22 Precautions Precautions Back pain PT-OP-B Current Condition Start: 06/18/22 19:18 Freq: Status: Active Protocol: Document 06/24/22 11:18 LRN (Rec: 06/24/22 12:40 LRN [id number]) Current Condition History of Current Condition Onset Date April 2022 Current Complaints L sided neck pain, after sitting awhile, reading, head down awhile. History of Current Condition Had back pain and then started to have neck pain after her back therapy ended. Sometimes neck hurts and has a hard time keeping neck straight when walking. Sometimes really hurts, not all the time . When tired, easier to be painful. Told referring physician and was referred to therapy. Now has pain in the L side of neck (indicating L lateral neck & UT), sometimes difficult holding head up. Couple weeks ago had bone scan test and found she has a bone density problem. Dr. Hull to talk to her at next visit in July. Prior Treatments and Tests None. Back rehabilitation this year. 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 Treatment Goals Patient/Caregiver Goals Pt goal is to learn how to manage the pain and keep from coming on. Pt agreeable to cont therapy for ex's until max improvement made. Prior Functional Status Baseline Function- ADL's Independent Baseline Function- Mobility Independent Baseline Function- Other Pt read nightly. Read to granddaughter 1/2 hour to put to sleep. Current Functional Impairments (Reported) Functional Limitations- ADL's Difficulty sitting without back support. Functional Limitations- Recreation/ Reads to self on weekends, no Hobbies longer reading nightly. Read to granddaughter 1/2 hour to put to sleep. Personal Factors Other Personal Factors That May Effect Reads every week 1-2 days a Therapy/Recovery week. Now trying to do just nighttime reading which was found to be helpful. Takes care of 14-15 month old granddaughter daily 3-9 hrs a day, diaper changes are challenging. PT-OP-C Subjective Start: 06/18/22 19:18 Freq: Status: Active Protocol: Document 06/24/22 11:18 LRN (Rec: 06/24/22 12:40 LRN [id number]) Patient Questionnaires Neck Disability Index NDI Score 6 Neck Disability Index Impairment 1 to 19% Impaired (Score 1-9) Quick Dash- Upper Extremity Quick Dash UE Score 2.27 Quick Dash UE Impairment 1 to 19% Impaired (Score 1-19) OP-PT Pain Assessment Pain Assessment Grid Paper Pain Assessment Grid Completed Yes Location Neck Pain Location Details L side of neck Intensity 0 Scale Used Numeric (0 - 10) Description- Other Currently no pain Frequency Intermittent Other Pain Aggravating Factors Reading PT-OP-E Functional Tests Start: 06/18/22 19:18 Freq: Status: Active Protocol: Document 06/24/22 11:18 LRN (Rec: 06/24/22 12:40 LRN [id number]) Functional Tests Apley's Scratch Test Action 1- Left Posterior scapula Action 1- Right Posterior scapula Action 2- Left T3 Action 2- Right T3 Action 3- Left T7 Action 3- Right T7 PT-OP-H Neuro Start: 06/18/22 19:18 Freq: Status: Active Protocol: Document 06/24/22 11:18 LRN (Rec: 06/24/22 12:40 LRN [id number]) Sensation Evaluation Gross Sensation Gross Sensation WNL PT-OP-J Posture/Palpation/Skin Start: 06/18/22 19:18 Freq: Status: Active Protocol: Document 06/24/22 11:18 LRN (Rec: 06/24/22 12:40 LRN [id number]) Posture Evaluation Position Sitting Head/C-Spine Posture Side Bent Right,Forward Head T-Spine Posture Increased Kyphosis L-Spine Posture Decreased Lordosis Comments Posture Comments Reverse curvature of neck. Palpation Assessment Location Neck Palpation Location R side of neck: UT; L side of neck: Paraspinals. Palpation Findings Soft Tissue Tightness, Tenderness Palpation Details L side of neck although being side of pain complaints had no palpable tenderness. PT-OP-K Range of Motion Start: 06/18/22 19:18 Freq: Status: Active Protocol: Document 06/24/22 11:18 LRN (Rec: 06/24/22 12:40 LRN [id number]) Cervical Spine Range of Motion Cervical Spine Active Degrees Testing Position Sitting Flexion 40 Extension 22 Rotation Left 50 Rotation Right 52 Lateral Flexion Left 10 Lateral Flexion Right 35 Comments Head position starting: Flex 10 deg's, sidebend 2 deg's. PROM in supine SB ~45 deg's bilaterally; Rot ~ 80 deg's bilaterally. Shoulder Goniometric Range of Motion Shoulder Right Active Testing Position Sitting Flexion 130 Extension 50 Abduction 168 Internal Rotation Behind Back (text) T7 Comments ER to T3 Left Active Testing Position Sitting Flexion 140 Extension 60 Abduction 160 Internal Rotation Behind Back (text) T7 Comments ER to T3 PT-OP-L Special Tests Start: 06/18/22 19:18 Freq: Status: Active Protocol: Document 06/24/22 11:18 LRN (Rec: 06/24/22 12:40 LRN [id number]) Special Tests Cervical Spine Special Tests Vertebral Artery Test Results Negative Bilaterally Comments Vish Rot caused R neck pain. PT-OP-M Strength Start: 06/18/22 19:18 Freq: Status: Active Protocol: Document 06/24/22 11:18 LRN (Rec: 06/24/22 12:40 LRN [id number]) Cervical Spine Strength Cervical Spine Manual Muscle Testing Comments Generally 4-/5 Shoulder Strength Shoulder Manual Muscle Testing Right Comments Generally 4/5 Left Comments Generally 4/5 PT-OP-Q Treatments Start: 06/18/22 19:18 Freq: Status: Active Protocol: Document 06/24/22 11:18 LRN (Rec: 06/24/22 12:40 LRN [id number]) Therapeutic Exercises Sitting Exercises Posture training Sitting Exercise Name Posture training of head on shoulders. Reps/Minutes 3' C. Ext Sitting Exercise Name Active C. Ext Reps/Minutes 10x Self-Care/Home Management Treatment Education Other Education Educated pt in proper head positioning while reading to granddaughter and discussed modification to supine reading . Educated pt in modification to daytime reading by using reading support on table and use of UEs to prop head up if neck becomes tired of holding head up. Demonstrated to pt the different ways to extend reading hours. Discussed results of evaluation, goals, and plan of care (POC). Pt agreeable to goals and POC. Activities Self-Care/Home Management Activities I/S pt in neck ext ex 2x/day 10-30 reps. PT-OP-T Assessment and Plan Start: 06/18/22 19:18 Freq: Status: Active Protocol: Document 06/24/22 11:18 LRN (Rec: 06/24/22 12:40 LRN [id number]) Physical Therapy Assessment Rehab Potential Rehabilitation Potential Excellent Evaluation Complexity Number of Personal Factors/Comorbidities 1-2 Number of Body Systems Impaired 4 or More Clinical Presentation at Evaluation Evolving Impairments Impairments Activity Tolerance,Pain, Posture,ROM,Soft Tissue Mobility,Strength Goals Three Impairment Poor awareness of head/neck posturing. Short Term Goal (STG) Pt will be educated in proper head/neck posturing in sit/ stand. STG Duration 08/10/22 Flatwork Finisher Hand Goal (LTG) Pt will be able to modify her daytime reading using external supports to keep her head from drooping after prolonged reading, or reposition (semi- supine or sidelie) to decrease forward head strain/posturing to enable tolerance to longer reading times. LTG Duration 09/22/22 Two Impairment Neck Pain Short Term Goal (STG) Decrease onset of neck pain with pt able to read more times throughout the week. STG Duration 08/10/22 Flatwork Finisher Hand Goal (LTG) Decrease neck pain after reading to granddaughter and will be able to tolerate sitting reading to granddaughter LTG Duration 09/22/22 One Impairment Pt lacks Appropriate Self Care HEP. Flatwork Finisher Hand Goal (LTG) Pt goal is to learn how to manage the pain and keep from coming on. LTG Duration 09/22/22 Assessment Summary Assessment Pt presents with severe head/ neck postural changes resulting in reverse curvature of the neck and onset of L lateral pain due to excessive forward head, R lateral lean of head on shoulders. Pt has overall poor posture in sitting and standing with excessive flexion posturing. The pt is taking care of her 14-15 month old granddaughter, exacerbating her forward head and neck flexion posturing. The pt is only able to attend therapy 1x/week; therefore pt progress will be more dependent on her self care program, slowing her rehab progress. The pt will benefit from skilled physical therapy to improve posture, strengthen her neck/upper back to improve posture, improve neck ext mobility and improve her tolerance to reading (for self and granddaughter). 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 Pt to do most ex 's at home. Review bone scan and assess C. traction/compression if appropriate. Check UE DTRs for neural changes. Postural head/neck education & training. Postural exercises (ROM-ext, R UT stretch), neck ext strengthening. MH/Estim [neck/UT'] for relaxation.
--- NOTE | 2022-06-24 17:02 | PT.OPPOC ---
Physical, Occupational & Speech Therapy At [facility] Current Diagnoses Postural kyphosis, cervicothoracic region (06/24/22) Unspecified kyphosis, cervical region (06/24/22) Cervicalgia (06/24/22) Visit Care Team Role Provider Type Rosa Hull MD Attending Provider Physician Family Provider Primary Care Provider Referring Provider Specialty: Internal Medicine Address: Phone: Fax: Email: Plan Of Care PT-OP-T Assessment and Plan Start: 06/18/22 19:18 Freq: Status: Active Protocol: Document 06/24/22 11:18 LRN (Rec: 06/24/22 12:40 LRN [id number]) Physical Therapy Assessment Rehab Potential Rehabilitation Potential Excellent Evaluation Complexity Number of Personal Factors/Comorbidities 1-2 Number of Body Systems Impaired 4 or More Clinical Presentation at Evaluation Evolving Impairments Impairments Activity Tolerance,Pain, Posture,ROM,Soft Tissue Mobility,Strength Goals Three Impairment Poor awareness of head/neck posturing. Short Term Goal (STG) Pt will be educated in proper head/neck posturing in sit/ stand. STG Duration 08/10/22 Sailing Instructor Goal (LTG) Pt will be able to modify her daytime reading using external supports to keep her head from drooping after prolonged reading, or reposition (semi- supine or sidelie) to decrease forward head strain/posturing to enable tolerance to longer reading times. LTG Duration 09/22/22 Two Impairment Neck Pain Short Term Goal (STG) Decrease onset of neck pain with pt able to read more times throughout the week. STG Duration 08/10/22 Fci Goal (LTG) Decrease neck pain after reading to granddaughter and will be able to tolerate sitting reading to granddaughter LTG Duration 09/22/22 One Impairment Pt lacks Appropriate Self Care HEP. Sailing Instructor Goal (LTG) Pt goal is to learn how to manage the pain and keep from coming on. LTG Duration 09/22/22 Assessment Summary Assessment Pt presents with severe head/ neck postural changes resulting in reverse curvature of the neck and onset of L lateral pain due to excessive forward head, R lateral lean of head on shoulders. Pt has overall poor posture in sitting and standing with excessive flexion posturing. The pt is taking care of her 14-15 month old granddaughter, exacerbating her forward head and neck flexion posturing. The pt is only able to attend therapy 1x/week; therefore pt progress will be more dependent on her self care program, slowing her rehab progress. The pt will benefit from skilled physical therapy to improve posture, strengthen her neck/upper back to improve posture, improve neck ext mobility and improve her tolerance to reading (for self and granddaughter). 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 Pt to do most ex 's at home. Review bone scan and assess C. traction/compression if appropriate. Check UE DTRs for neural changes. Postural head/neck education & training. Postural exercises (ROM-ext, R UT stretch), neck ext strengthening. MH/Estim [neck/UT'] for relaxation. Plan of Care Dates Plan of Care Start Date 06/24/22 Plan of Care End Date 09/22/22 Electronically Signed by: Mercy Henriquez, PT 06/24/22 [id number] If you are in agreement with this Plan of Care, please return a signed and dated copy. I have reviewed this Plan of Care and certify that the skilled therapy services above are required to meet the patient?s needs. Physician Signature Date Printed Name and Credentials Clinical Instructor Signature Printed Name and Credentials
--- NOTE | 2022-07-01 17:07 | PT.OTN ---
Current Diagnoses Postural kyphosis, cervicothoracic region (07/01/22) Unspecified kyphosis, cervical region (07/01/22) Cervicalgia (07/01/22) Physical Therapy Treatment Note PT-OP-A Visit Information Start: 06/18/22 19:18 Freq: Status: Active Protocol: Document 07/01/22 13:06 LRN (Rec: 07/01/22 13:49 LRN [id number]) Out-Patient Physical Therapy Visit Information Visit Information Visit Type Treatment Note Visit Start Time 13:06 Visit Stop Time 13:47 Total Visit Minutes 41 Visit Number 2 Evaluation Information Evaluation Date 06/24/22 Precautions Precautions Back pain PT-OP-B Current Condition Start: 06/18/22 19:18 Freq: Status: Active Protocol: Document 06/24/22 11:18 LRN (Rec: 06/24/22 12:40 LRN [id number]) Current Condition History of Current Condition Onset Date April 2022 Current Complaints L sided neck pain, after sitting awhile, reading, head down awhile. History of Current Condition Had back pain and then started to have neck pain after her back therapy ended. Sometimes neck hurts and has a hard time keeping neck straight when walking. Sometimes really hurts, not all the time . When tired, easier to be painful. Told referring physician and was referred to therapy. Now has pain in the L side of neck (indicating L lateral neck & UT), sometimes difficult holding head up. Couple weeks ago had bone scan test and found she has a bone density problem. Dr. Hull to talk to her at next visit in July. Prior Treatments and Tests None. Back rehabilitation this year. 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 Treatment Goals Patient/Caregiver Goals Pt goal is to learn how to manage the pain and keep from coming on. Pt agreeable to cont therapy for ex's until max improvement made. Prior Functional Status Baseline Function- ADL's Independent Baseline Function- Mobility Independent Baseline Function- Other Pt read nightly. Read to granddaughter 1/2 hour to put to sleep. Current Functional Impairments (Reported) Functional Limitations- ADL's Difficulty sitting without back support. Functional Limitations- Recreation/ Reads to self on weekends, no Hobbies longer reading nightly. Read to granddaughter 1/2 hour to put to sleep. Personal Factors Other Personal Factors That May Effect Reads every week 1-2 days a Therapy/Recovery week. Now trying to do just nighttime reading which was found to be helpful. Takes care of 14-15 month old granddaughter daily 3-9 hrs a day, diaper changes are challenging. PT-OP-C Subjective Start: 06/18/22 19:18 Freq: Status: Active Protocol: Document 07/01/22 13:06 LRN (Rec: 07/01/22 13:49 LRN [id number]) OP-PT Subjective Patient Comments Patient Comments Same, neck is sore/ uncomfortable. PT-OP-E Functional Tests Start: 06/18/22 19:18 Freq: Status: Active Protocol: Document 06/24/22 11:18 LRN (Rec: 06/24/22 12:40 LRN [id number]) Functional Tests Apley's Scratch Test Action 1- Left Posterior scapula Action 1- Right Posterior scapula Action 2- Left T3 Action 2- Right T3 Action 3- Left T7 Action 3- Right T7 PT-OP-H Neuro Start: 06/18/22 19:18 Freq: Status: Active Protocol: Document 06/24/22 11:18 LRN (Rec: 06/24/22 12:40 LRN [id number]) Sensation Evaluation Gross Sensation Gross Sensation WNL PT-OP-J Posture/Palpation/Skin Start: 06/18/22 19:18 Freq: Status: Active Protocol: Document 06/24/22 11:18 LRN (Rec: 06/24/22 12:40 LRN [id number]) Posture Evaluation Position Sitting Head/C-Spine Posture Side Bent Right,Forward Head T-Spine Posture Increased Kyphosis L-Spine Posture Decreased Lordosis Comments Posture Comments Reverse curvature of neck. Palpation Assessment Location Neck Palpation Location R side of neck: UT; L side of neck: Paraspinals. Palpation Findings Soft Tissue Tightness, Tenderness Palpation Details L side of neck although being side of pain complaints had no palpable tenderness. PT-OP-K Range of Motion Start: 06/18/22 19:18 Freq: Status: Active Protocol: Document 06/24/22 11:18 LRN (Rec: 06/24/22 12:40 LRN [id number]) Cervical Spine Range of Motion Cervical Spine Active Degrees Testing Position Sitting Flexion 40 Extension 22 Rotation Left 50 Rotation Right 52 Lateral Flexion Left 10 Lateral Flexion Right 35 Comments Head position starting: Flex 10 deg's, sidebend 2 deg's. PROM in supine SB ~45 deg's bilaterally; Rot ~ 80 deg's bilaterally. Shoulder Goniometric Range of Motion Shoulder Right Active Testing Position Sitting Flexion 130 Extension 50 Abduction 168 Internal Rotation Behind Back (text) T7 Comments ER to T3 Left Active Testing Position Sitting Flexion 140 Extension 60 Abduction 160 Internal Rotation Behind Back (text) T7 Comments ER to T3 PT-OP-L Special Tests Start: 06/18/22 19:18 Freq: Status: Active Protocol: Document 06/24/22 11:18 LRN (Rec: 06/24/22 12:40 LRN [id number]) Special Tests Cervical Spine Special Tests Vertebral Artery Test Results Negative Bilaterally Comments Vish Rot caused R neck pain. PT-OP-M Strength Start: 06/18/22 19:18 Freq: Status: Active Protocol: Document 06/24/22 11:18 LRN (Rec: 06/24/22 12:40 LRN [id number]) Cervical Spine Strength Cervical Spine Manual Muscle Testing Comments Generally 4-/5 Shoulder Strength Shoulder Manual Muscle Testing Right Comments Generally 4/5 Left Comments Generally 4/5 PT-OP-Q Treatments Start: 06/18/22 19:18 Freq: Status: Active Protocol: Document 07/01/22 13:06 LRN (Rec: 07/01/22 13:49 LRN [id number]) Therapeutic Exercises Sitting Exercises Head/neck posture training Sitting Exercise Name Head/Neck posture training Equipment Used Chair against wall with pillow propped for head to rest against. Reps/Minutes 3' Comments physical integration practitioner & v cuing needed. C. SB stretch Sitting Exercise Name C SB stretch Side left Reps/Minutes 10 SH x 10 Comments Much cuing to keep head in upright posture. Shoulder Girdle stretch Sitting Exercise Name Stretch into horiz ADD. Side bilateral Reps/Minutes 20SH x 3 Looking over shoulder Sitting Exercise Name Looking over shoulder Side bilateral Comments Much cuing for wgt shift and head positioning. Shldr Rolls Sitting Exercise Name Shldr Rolls fwd/bkwd Side bilateral Reps/Minutes 4x each Comments Much cuing for head positioning. C. Ext Sitting Exercise Name Active and Isometric (pushing head into pillow) C. Ext Equipment Used Chair, pillow agst wall. Reps/Minutes 15x Comments Cuing to not go into flexion Self-Care/Home Management Treatment Education Other Education Pt educated in proper sitting and standing posture, using pillow and towel roll to help prop the pt up into proper sitting postion. Much cuing and constant reporisioning of head for improved posture. Pt educated in good posture in in supine, sidelie and for prone positioning for BRET exercise. I/S pt not to lie prone. Pt educated in neck/shoulder anatomy with handout for explanation. Activities Self-Care/Home Management Activities Issued HEP: Proper Posture handouts, EX: Neck rot w/wgt shift (looking over shoulder), Shoulder girdle stretch (arms across chest), & Neck SB left stretch. PT-OP-T Assessment and Plan Start: 06/18/22 19:18 Freq: Status: Active Protocol: Document 07/01/22 13:06 LRN (Rec: 07/01/22 13:49 LRN [id number]) Physical Therapy Assessment Goals Three Impairment Poor awareness of head/neck posturing. Short Term Goal (STG) Pt will be educated in proper head/neck posturing in sit/ stand. STG Duration 08/10/22 (07/01/22: MET GOAL ) Halfway Goal (LTG) Pt will be able to modify her daytime reading using external supports to keep her head from drooping after prolonged reading, or reposition (semi- supine or sidelie) to decrease forward head strain/posturing to enable tolerance to longer reading times. LTG Duration 09/22/22 Two Impairment Neck Pain Short Term Goal (STG) Decrease onset of neck pain with pt able to read more times throughout the week. STG Duration 08/10/22 Halfway Goal (LTG) Decrease neck pain after reading to granddaughter and will be able to tolerate sitting reading to granddaughter LTG Duration 09/22/22 One Impairment Pt lacks Appropriate Self Care HEP. Lapping Machine Set Up Operator Goal (LTG) Pt goal is to learn how to manage the pain and keep from coming on. LTG Duration 09/22/22 Assessment Summary Assessment Pt does not maintain her head in upright posture and needs phys & v cuing to reposition constantly throughout therapy. Pt has poor awareness, weak neck ext strength and habitual head down posturing. 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 Pt to do most ex's at home. Review bone scan and assess C. traction/compression if appropriate. Check UE DTRs for neural changes. Review Postural exercises previously issued. Add to HEP : If tolerated, BRET with neck extension, shoulder squeeze, hands/knees head lifts and arm lifts, neck ext strengthening (lucas, active resistive & conc/ecc). MH/Estim [neck/UT'] for relaxation.
--- NOTE | 2022-07-22 15:29 | PT.OTN ---
Current Diagnoses Postural kyphosis, cervicothoracic region (07/22/22) Unspecified kyphosis, cervical region (07/22/22) Cervicalgia (07/22/22) Physical Therapy Treatment Note PT-OP-A Visit Information Start: 06/18/22 19:18 Freq: Status: Active Protocol: Document 07/22/22 10:36 LRN (Rec: 07/22/22 11:21 LRN [id number]) Out-Patient Physical Therapy Visit Information Visit Information Visit Type Treatment Note Visit Start Time 10:36 Visit Stop Time 11:18 Total Visit Minutes 42 Visit Number 3 Evaluation Information Evaluation Date 06/24/22 Precautions Precautions Back pain PT-OP-B Current Condition Start: 06/18/22 19:18 Freq: Status: Active Protocol: Document 06/24/22 11:18 LRN (Rec: 06/24/22 12:40 LRN [id number]) Current Condition History of Current Condition Onset Date April 2022 Current Complaints L sided neck pain, after sitting awhile, reading, head down awhile. History of Current Condition Had back pain and then started to have neck pain after her back therapy ended. Sometimes neck hurts and has a hard time keeping neck straight when walking. Sometimes really hurts, not all the time . When tired, easier to be painful. Told referring physician and was referred to therapy. Now has pain in the L side of neck (indicating L lateral neck & UT), sometimes difficult holding head up. Couple weeks ago had bone scan test and found she has a bone density problem. Dr. Hull to talk to her at next visit in July. Prior Treatments and Tests None. Back rehabilitation this year. 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 Treatment Goals Patient/Caregiver Goals Pt goal is to learn how to manage the pain and keep from coming on. Pt agreeable to cont therapy for ex's until max improvement made. Prior Functional Status Baseline Function- ADL's Independent Baseline Function- Mobility Independent Baseline Function- Other Pt read nightly. Read to granddaughter 1/2 hour to put to sleep. Current Functional Impairments (Reported) Functional Limitations- ADL's Difficulty sitting without back support. Functional Limitations- Recreation/ Reads to self on weekends, no Hobbies longer reading nightly. Read to granddaughter 1/2 hour to put to sleep. Personal Factors Other Personal Factors That May Effect Reads every week 1-2 days a Therapy/Recovery week. Now trying to do just nighttime reading which was found to be helpful. Takes care of 14-15 month old granddaughter daily 3-9 hrs a day, diaper changes are challenging. PT-OP-C Subjective Start: 06/18/22 19:18 Freq: Status: Active Protocol: Document 07/22/22 10:36 LRN (Rec: 07/22/22 11:21 LRN [id number]) OP-PT Subjective Patient Comments Patient Comments Noticed when getting tired her neck becomes uncomfortable and geo learns back or lyes down and she is okay. States she holds her reading book up now and tries to relax. PT-OP-E Functional Tests Start: 06/18/22 19:18 Freq: Status: Active Protocol: Document 06/24/22 11:18 LRN (Rec: 06/24/22 12:40 LRN [id number]) Functional Tests Apley's Scratch Test Action 1- Left Posterior scapula Action 1- Right Posterior scapula Action 2- Left T3 Action 2- Right T3 Action 3- Left T7 Action 3- Right T7 PT-OP-H Neuro Start: 06/18/22 19:18 Freq: Status: Active Protocol: Document 07/22/22 10:36 LRN (Rec: 07/22/22 11:21 LRN [id number]) Deep Tendon Reflex & Clonus Assessment Deep Tendon Reflex Bilateral Brachioradialis Deep Tendon Reflex 3+ Normal But Brisk Right Tricep Deep Tendon Reflex 3+ Normal But Brisk Bilateral Bicep Deep Tendon Reflex 3+ Normal But Brisk PT-OP-J Posture/Palpation/Skin Start: 06/18/22 19:18 Freq: Status: Active Protocol: Document 06/24/22 11:18 LRN (Rec: 06/24/22 12:40 LRN [id number]) Posture Evaluation Position Sitting Head/C-Spine Posture Side Bent Right,Forward Head T-Spine Posture Increased Kyphosis L-Spine Posture Decreased Lordosis Comments Posture Comments Reverse curvature of neck. Palpation Assessment Location Neck Palpation Location R side of neck: UT; L side of neck: Paraspinals. Palpation Findings Soft Tissue Tightness, Tenderness Palpation Details L side of neck although being side of pain complaints had no palpable tenderness. PT-OP-K Range of Motion Start: 06/18/22 19:18 Freq: Status: Active Protocol: Document 06/24/22 11:18 LRN (Rec: 06/24/22 12:40 LRN [id number]) Cervical Spine Range of Motion Cervical Spine Active Degrees Testing Position Sitting Flexion 40 Extension 22 Rotation Left 50 Rotation Right 52 Lateral Flexion Left 10 Lateral Flexion Right 35 Comments Head position starting: Flex 10 deg's, sidebend 2 deg's. PROM in supine SB ~45 deg's bilaterally; Rot ~ 80 deg's bilaterally. Shoulder Goniometric Range of Motion Shoulder Right Active Testing Position Sitting Flexion 130 Extension 50 Abduction 168 Internal Rotation Behind Back (text) T7 Comments ER to T3 Left Active Testing Position Sitting Flexion 140 Extension 60 Abduction 160 Internal Rotation Behind Back (text) T7 Comments ER to T3 PT-OP-L Special Tests Start: 06/18/22 19:18 Freq: Status: Active Protocol: Document 06/24/22 11:18 LRN (Rec: 06/24/22 12:40 LRN [id number]) Special Tests Cervical Spine Special Tests Vertebral Artery Test Results Negative Bilaterally Comments Vish Rot caused R neck pain. PT-OP-M Strength Start: 06/18/22 19:18 Freq: Status: Active Protocol: Document 06/24/22 11:18 LRN (Rec: 06/24/22 12:40 LRN [id number]) Cervical Spine Strength Cervical Spine Manual Muscle Testing Comments Generally 4-/5 Shoulder Strength Shoulder Manual Muscle Testing Right Comments Generally 4/5 Left Comments Generally 4/5 PT-OP-Q Treatments Start: 06/18/22 19:18 Freq: Status: Active Protocol: Document 07/22/22 10:36 LRN (Rec: 07/22/22 11:21 LRN [id number]) Therapeutic Exercises Sitting Exercises C. L rot stretch Sitting Exercise Name C. L rot stretch Side left Reps/Minutes 60 SH x 1 Head/neck posture training Sitting Exercise Name Head/Neck posture training Equipment Used Chair against wall with pillow propped for head to rest against. Reps/Minutes 3', 3' postural corrections Comments licensed physical therapy assistant & v cuing needed. C. SB stretch Sitting Exercise Name C SB stretch Side left Reps/Minutes 10 SH x 10 Comments Much cuing to keep head in upright posture. Shoulder Girdle stretch Sitting Exercise Name Stretch into horiz ADD. Side bilateral Reps/Minutes 20SH x 3 Looking over shoulder Sitting Exercise Name Looking over shoulder Side left Reps/Minutes 60 SH x 1 Comments Phys & V Cuing for wgt shift and head positioning. Shldr Rolls Sitting Exercise Name Shldr Rolls bkwd Side bilateral Reps/Minutes 10x Comments Much cuing for head positioning. C. Ext Sitting Exercise Name Active and Isometric C. Ext Equipment Used Sitting unsupported Reps/Minutes 10 SH x 10 Comments Cuing to not go into flexion Other Exercises 4 pt Head lifts Other Exercise Name 4 pt head in neutral w/chin tuck > head lift Reps/Minutes 5 SH ea position x 10 Self-Care/Home Management Treatment Education Patient Education Home Exercise Program Activities Self-Care/Home Management Activities Issued & reviewed HEP: Stretches: Neck ext, L SB & L Rot. PT-OP-T Assessment and Plan Start: 06/18/22 19:18 Freq: Status: Active Protocol: Document 07/22/22 10:36 LRN (Rec: 07/22/22 11:21 LRN [id number]) Physical Therapy Assessment Goals Three Impairment Poor awareness of head/neck posturing. Short Term Goal (STG) Pt will be educated in proper head/neck posturing in sit/ stand. STG Duration 08/10/22 (07/01/22: MET GOAL ) Shelter Goal (LTG) Pt will be able to modify her daytime reading using external supports to keep her head from drooping after prolonged reading, or reposition (semi- supine or sidelie) to decrease forward head strain/posturing to enable tolerance to longer reading times. LTG Duration 09/22/22 Two Impairment Neck Pain Short Term Goal (STG) Decrease onset of neck pain with pt able to read more times throughout the week. STG Duration 08/10/22 Shelter Goal (LTG) Decrease neck pain after reading to granddaughter and will be able to tolerate sitting reading to granddaughter LTG Duration 09/22/22 One Impairment Pt lacks Appropriate Self Care HEP. Shelter Goal (LTG) Pt goal is to learn how to manage the pain and keep from coming on. LTG Duration 09/22/22 Assessment Summary Assessment Pt with severe head/neck postural changes resulting in reverse curvature of the neck and onset of L lateral pain due to excessive forward head, R lateral lean of head on shoulders. UE DTR's are bilaterally brisk; therefore considered normal. Pt has good understanding of proper posturing, but trouble maintaining proper sitting posture due to increased tone with Cervical Flex, R SB, and R Rot. Minimal neck ext noted . 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 Discuss scheduling for further PT. Review issued HEP. Review bone scan and assess C. traction/compression if appropriate. Add to HEP: If tolerated, BRET with neck extension, shoulder squeeze, hands/knees arm lifts, neck ext strengthening (lucas, active resistive & conc/ecc). MH/Estim [neck/UT'] for relaxation.
--- NOTE | 2022-07-29 09:49 | PT.OTN ---
Current Diagnoses Postural kyphosis, cervicothoracic region (07/29/22) Unspecified kyphosis, cervical region (07/29/22) Cervicalgia (07/29/22) Physical Therapy Treatment Note PT-OP-A Visit Information Start: 06/18/22 19:18 Freq: Status: Active Protocol: Document 07/29/22 09:05 LRN (Rec: 07/29/22 09:47 LRN [id number]) Out-Patient Physical Therapy Visit Information Visit Information Visit Type Treatment Note Visit Start Time 09:05 Visit Stop Time 09:45 Total Visit Minutes 42 Visit Number 4 Evaluation Information Evaluation Date 06/24/22 Precautions Precautions Back pain PT-OP-B Current Condition Start: 06/18/22 19:18 Freq: Status: Active Protocol: Document 06/24/22 11:18 LRN (Rec: 06/24/22 12:40 LRN [id number]) Current Condition History of Current Condition Onset Date April 2022 Current Complaints L sided neck pain, after sitting awhile, reading, head down awhile. History of Current Condition Had back pain and then started to have neck pain after her back therapy ended. Sometimes neck hurts and has a hard time keeping neck straight when walking. Sometimes really hurts, not all the time . When tired, easier to be painful. Told referring physician and was referred to therapy. Now has pain in the L side of neck (indicating L lateral neck & UT), sometimes difficult holding head up. Couple weeks ago had bone scan test and found she has a bone density problem. Dr. Hull to talk to her at next visit in July. Prior Treatments and Tests None. Back rehabilitation this year. 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 Treatment Goals Patient/Caregiver Goals Pt goal is to learn how to manage the pain and keep from coming on. Pt agreeable to cont therapy for ex's until max improvement made. Prior Functional Status Baseline Function- ADL's Independent Baseline Function- Mobility Independent Baseline Function- Other Pt read nightly. Read to granddaughter 1/2 hour to put to sleep. Current Functional Impairments (Reported) Functional Limitations- ADL's Difficulty sitting without back support. Functional Limitations- Recreation/ Reads to self on weekends, no Hobbies longer reading nightly. Read to granddaughter 1/2 hour to put to sleep. Personal Factors Other Personal Factors That May Effect Reads every week 1-2 days a Therapy/Recovery week. Now trying to do just nighttime reading which was found to be helpful. Takes care of 14-15 month old granddaughter daily 3-9 hrs a day, diaper changes are challenging. PT-OP-C Subjective Start: 06/18/22 19:18 Freq: Status: Active Protocol: Document 07/29/22 09:05 LRN (Rec: 07/29/22 09:47 LRN [id number]) OP-PT Subjective Patient Comments Patient Comments No changes, but later states she is having less neck pain. PT-OP-E Functional Tests Start: 06/18/22 19:18 Freq: Status: Active Protocol: Document 06/24/22 11:18 LRN (Rec: 06/24/22 12:40 LRN [id number]) Functional Tests Apley's Scratch Test Action 1- Left Posterior scapula Action 1- Right Posterior scapula Action 2- Left T3 Action 2- Right T3 Action 3- Left T7 Action 3- Right T7 PT-OP-H Neuro Start: 06/18/22 19:18 Freq: Status: Active Protocol: Document 07/22/22 10:36 LRN (Rec: 07/22/22 11:21 LRN [id number]) Deep Tendon Reflex & Clonus Assessment Deep Tendon Reflex Bilateral Brachioradialis Deep Tendon Reflex 3+ Normal But Brisk Right Tricep Deep Tendon Reflex 3+ Normal But Brisk Bilateral Bicep Deep Tendon Reflex 3+ Normal But Brisk PT-OP-J Posture/Palpation/Skin Start: 06/18/22 19:18 Freq: Status: Active Protocol: Document 06/24/22 11:18 LRN (Rec: 06/24/22 12:40 LRN [id number]) Posture Evaluation Position Sitting Head/C-Spine Posture Side Bent Right,Forward Head T-Spine Posture Increased Kyphosis L-Spine Posture Decreased Lordosis Comments Posture Comments Reverse curvature of neck. Palpation Assessment Location Neck Palpation Location R side of neck: UT; L side of neck: Paraspinals. Palpation Findings Soft Tissue Tightness, Tenderness Palpation Details L side of neck although being side of pain complaints had no palpable tenderness. PT-OP-K Range of Motion Start: 06/18/22 19:18 Freq: Status: Active Protocol: Document 06/24/22 11:18 LRN (Rec: 06/24/22 12:40 LRN [id number]) Cervical Spine Range of Motion Cervical Spine Active Degrees Testing Position Sitting Flexion 40 Extension 22 Rotation Left 50 Rotation Right 52 Lateral Flexion Left 10 Lateral Flexion Right 35 Comments Head position starting: Flex 10 deg's, sidebend 2 deg's. PROM in supine SB ~45 deg's bilaterally; Rot ~ 80 deg's bilaterally. Shoulder Goniometric Range of Motion Shoulder Right Active Testing Position Sitting Flexion 130 Extension 50 Abduction 168 Internal Rotation Behind Back (text) T7 Comments ER to T3 Left Active Testing Position Sitting Flexion 140 Extension 60 Abduction 160 Internal Rotation Behind Back (text) T7 Comments ER to T3 PT-OP-L Special Tests Start: 06/18/22 19:18 Freq: Status: Active Protocol: Document 06/24/22 11:18 LRN (Rec: 06/24/22 12:40 LRN [id number]) Special Tests Cervical Spine Special Tests Vertebral Artery Test Results Negative Bilaterally Comments Vish Rot caused R neck pain. PT-OP-M Strength Start: 06/18/22 19:18 Freq: Status: Active Protocol: Document 06/24/22 11:18 LRN (Rec: 06/24/22 12:40 LRN [id number]) Cervical Spine Strength Cervical Spine Manual Muscle Testing Comments Generally 4-/5 Shoulder Strength Shoulder Manual Muscle Testing Right Comments Generally 4/5 Left Comments Generally 4/5 PT-OP-Q Treatments Start: 06/18/22 19:18 Freq: Status: Active Protocol: Document 07/29/22 09:05 LRN (Rec: 07/29/22 09:47 LRN [id number]) Cardio Equipment Upper Body Ergometer (UBE) Duration (Minutes) 6 RPM 70 Height 3 Other Cuing through ex to keep neck in neutral or head ext. Therapeutic Exercises Supine Exercises Neck & trunk rot Supine Exercise Name Neck & trunk rot. Side left Neck Elongation Supine Exercise Name Neck Dorsal Assawoman (elongate & flatten curve of neck) Equipment Used towel roll under neck Reps/Minutes 10 SH x 10 Sitting Exercises Reinaldo L SB Sitting Exercise Name Reinaldo L SB - review of HEP Side left Reps/Minutes 5 SH x 10 Reinaldo neck ext Sitting Exercise Name Reinaldo neck Ext - review of HEP Reps/Minutes 5 SH x 15 Pec stretch Sitting Exercise Name Football Goal post stretch - review of HEP Side bilateral Reps/Minutes 5 SH x 15 C. L rot stretch Sitting Exercise Name C. 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 C. SB stretch Sitting Exercise Name C SB stretch Side left Reps/Minutes 10 SH x 10 Comments Much cuing to keep head in upright posture. Looking over shoulder Sitting Exercise Name After L rot stretch, Looking over shoulder Side left Reps/Minutes 15x Comments Much Phys & V Cuing for wgt shif/trunk rot t head positioning start & end. C. Ext Sitting Exercise Name Active and Isometric C. Ext Equipment Used Sitting unsupported Reps/Minutes 10 SH x 10 Comments Cuing to not go into flexion PT-OP-T Assessment and Plan Start: 06/18/22 19:18 Freq: Status: Active Protocol: Document 07/29/22 09:05 LRN (Rec: 07/29/22 09:47 LRN [id number]) Physical Therapy Assessment Goals Three Impairment Poor awareness of head/neck posturing. Short Term Goal (STG) Pt will be educated in proper head/neck posturing in sit/ stand. STG Duration 08/10/22 (07/01/22: MET GOAL ) House Manager Goal (LTG) Pt will be able to modify her daytime reading using external supports to keep her head from drooping after prolonged reading, or reposition (semi- supine or sidelie) to decrease forward head strain/posturing to enable tolerance to longer reading times. LTG Duration 09/22/22 Two Impairment Neck Pain Short Term Goal (STG) Decrease onset of neck pain with pt able to read more times throughout the week. STG Duration 08/10/22 House Manager Goal (LTG) Decrease neck pain after reading to granddaughter and will be able to tolerate sitting reading to granddaughter LTG Duration 09/22/22 One Impairment Pt lacks Appropriate Self Care HEP. Intermediate Goal (LTG) Pt goal is to learn how to manage the pain and keep from coming on. LTG Duration 09/22/22 Assessment Summary Assessment Pt demonstrates knowledge of HEP, but needed cues for proper posturing. Pt shows improved neck posturing with pt able to hold head in better posture for short periods of time. She tends to forward head posture when holding her head in neutral. Pt neck pain decreasing with improved posture. 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 Add neck and torso rotation. Review bone scan and assess C. traction/compression if appropriate. Add to HEP: If tolerated, BRET with neck extension, shoulder squeeze, hands/knees arm lifts, neck ext strengthening (reinaldo, active resistive & conc/ecc). MH/Estim [neck/UT'] for relaxation.
--- NOTE | 2022-08-05 18:08 | PT.OTN ---
Current Diagnoses Postural kyphosis, cervicothoracic region (08/05/22) Unspecified kyphosis, cervical region (08/05/22) Cervicalgia (08/05/22) Physical Therapy Treatment Note PT-OP-A Visit Information Start: 06/18/22 19:18 Freq: Status: Active Protocol: Document 08/05/22 08:17 LRN (Rec: 08/05/22 09:05 LRN [id number]) Out-Patient Physical Therapy Visit Information Visit Information Visit Type Treatment Note Visit Start Time 08:17 Visit Stop Time 09:00 Total Visit Minutes 43 Visit Number 5 PT-OP-B Current Condition Start: 06/18/22 19:18 Freq: Status: Active Protocol: Document 06/24/22 11:18 LRN (Rec: 06/24/22 12:40 LRN [id number]) Current Condition History of Current Condition Onset Date April 2022 Current Complaints L sided neck pain, after sitting awhile, reading, head down awhile. History of Current Condition Had back pain and then started to have neck pain after her back therapy ended. Sometimes neck hurts and has a hard time keeping neck straight when walking. Sometimes really hurts, not all the time . When tired, easier to be painful. Told referring physician and was referred to therapy. Now has pain in the L side of neck (indicating L lateral neck & UT), sometimes difficult holding head up. Couple weeks ago had bone scan test and found she has a bone density problem. Dr. Hull to talk to her at next visit in July. Prior Treatments and Tests None. Back rehabilitation this year. 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 Treatment Goals Patient/Caregiver Goals Pt goal is to learn how to manage the pain and keep from coming on. Pt agreeable to cont therapy for ex's until max improvement made. Prior Functional Status Baseline Function- ADL's Independent Baseline Function- Mobility Independent Baseline Function- Other Pt read nightly. Read to granddaughter 1/2 hour to put to sleep. Current Functional Impairments (Reported) Functional Limitations- ADL's Difficulty sitting without back support. Functional Limitations- Recreation/ Reads to self on weekends, no Hobbies longer reading nightly. Read to granddaughter 1/2 hour to put to sleep. Personal Factors Other Personal Factors That May Effect Reads every week 1-2 days a Therapy/Recovery week. Now trying to do just nighttime reading which was found to be helpful. Takes care of 14-15 month old granddaughter daily 3-9 hrs a day, diaper changes are challenging. PT-OP-C Subjective Start: 06/18/22 19:18 Freq: Status: Active Protocol: Document 08/05/22 08:17 LRN (Rec: 08/05/22 09:05 LRN [id number]) OP-PT Subjective Patient Comments Patient Comments States she did not work on her exercises. Has had pain in the L side of the neck. States her neck gets sore after 1-2 hrs of reading. Seeing MD at next visit 08/13/22. PT-OP-E Functional Tests Start: 06/18/22 19:18 Freq: Status: Active Protocol: Document 06/24/22 11:18 LRN (Rec: 06/24/22 12:40 LRN [id number]) Functional Tests Apley's Scratch Test Action 1- Left Posterior scapula Action 1- Right Posterior scapula Action 2- Left T3 Action 2- Right T3 Action 3- Left T7 Action 3- Right T7 PT-OP-H Neuro Start: 06/18/22 19:18 Freq: Status: Active Protocol: Document 07/22/22 10:36 LRN (Rec: 07/22/22 11:21 LRN [id number]) Deep Tendon Reflex & Clonus Assessment Deep Tendon Reflex Bilateral Brachioradialis Deep Tendon Reflex 3+ Normal But Brisk Right Tricep Deep Tendon Reflex 3+ Normal But Brisk Bilateral Bicep Deep Tendon Reflex 3+ Normal But Brisk PT-OP-J Posture/Palpation/Skin Start: 06/18/22 19:18 Freq: Status: Active Protocol: Document 06/24/22 11:18 LRN (Rec: 06/24/22 12:40 LRN [id number]) Posture Evaluation Position Sitting Head/C-Spine Posture Side Bent Right,Forward Head T-Spine Posture Increased Kyphosis L-Spine Posture Decreased Lordosis Comments Posture Comments Reverse curvature of neck. Palpation Assessment Location Neck Palpation Location R side of neck: UT; L side of neck: Paraspinals. Palpation Findings Soft Tissue Tightness, Tenderness Palpation Details L side of neck although being side of pain complaints had no palpable tenderness. PT-OP-K Range of Motion Start: 06/18/22 19:18 Freq: Status: Active Protocol: Document 06/24/22 11:18 LRN (Rec: 06/24/22 12:40 LRN [id number]) Cervical Spine Range of Motion Cervical Spine Active Degrees Testing Position Sitting Flexion 40 Extension 22 Rotation Left 50 Rotation Right 52 Lateral Flexion Left 10 Lateral Flexion Right 35 Comments Head position starting: Flex 10 deg's, sidebend 2 deg's. PROM in supine SB ~45 deg's bilaterally; Rot ~ 80 deg's bilaterally. Shoulder Goniometric Range of Motion Shoulder Right Active Testing Position Sitting Flexion 130 Extension 50 Abduction 168 Internal Rotation Behind Back (text) T7 Comments ER to T3 Left Active Testing Position Sitting Flexion 140 Extension 60 Abduction 160 Internal Rotation Behind Back (text) T7 Comments ER to T3 PT-OP-L Special Tests Start: 06/18/22 19:18 Freq: Status: Active Protocol: Document 06/24/22 11:18 LRN (Rec: 06/24/22 12:40 LRN [id number]) Special Tests Cervical Spine Special Tests Vertebral Artery Test Results Negative Bilaterally Comments Vish Rot caused R neck pain. PT-OP-M Strength Start: 06/18/22 19:18 Freq: Status: Active Protocol: Document 06/24/22 11:18 LRN (Rec: 06/24/22 12:40 LRN [id number]) Cervical Spine Strength Cervical Spine Manual Muscle Testing Comments Generally 4-/5 Shoulder Strength Shoulder Manual Muscle Testing Right Comments Generally 4/5 Left Comments Generally 4/5 PT-OP-Q Treatments Start: 06/18/22 19:18 Freq: Status: Active Protocol: Document 08/05/22 08:17 LRN (Rec: 08/05/22 09:05 LRN [id number]) Therapeutic Exercises Sitting Exercises Reinaldo L SB Sitting Exercise Name Reinaldo L SB - HEP Side left Equipment Used Wall w/folded hand towel & fingertip resist Reps/Minutes 5 SH x 10 Comments Phy assist needed to keep head in neutral Reinaldo neck ext Sitting Exercise Name Reinaldo neck Ext - review of HEP Resistance Wall w/folded hand towel & fingertip resist Reps/Minutes 5 SH x 20 Comments Much Phy assist needed to keep head in neutral Pec stretch Sitting Exercise Name Football Goal post stretch - review of HEP Side bilateral Reps/Minutes 60 f/b active stretch with scapular pinches Comments Extra time for training C. L rot stretch Sitting Exercise Name C. L rot stretch, f/b looking over shldr ex Side left Reps/Minutes 10 SH x 10 C. SB stretch Sitting Exercise Name C SB stretch Side left Reps/Minutes 10 SH x 10 Comments Much cuing to keep head in upright posture. Looking over shoulder Sitting Exercise Name Rotating to look behind at top edge of ceiling. Side left Reps/Minutes 15x Comments Much Phys & V Cuing for wgt shif/trunk rot t head positioning start & end. C. Ext Sitting Exercise Name Active and Isometric C. Ext Equipment Used Sitting unsupported Reps/Minutes 10 SH x 15 Comments Cuing to not go into flexion, phys cuing to further ext ROM Self-Care/Home Management Treatment Education Patient Education Home Exercise Program Activities Self-Care/Home Management Activities Issued & reviewed: Supine Pec stretch. Reissued Neck stretches: Ext L SB, L rot. Sitting reinaldo neck ext, L SB. PT-OP-T Assessment and Plan Start: 06/18/22 19:18 Freq: Status: Active Protocol: Document 08/05/22 08:17 LRN (Rec: 08/05/22 09:05 LRN [id number]) Physical Therapy Assessment Goals Three Impairment Poor awareness of head/neck posturing. Short Term Goal (STG) Pt will be educated in proper head/neck posturing in sit/ stand. STG Duration 08/10/22 (07/01/22: MET GOAL ) Assisted Goal (LTG) Pt will be able to modify her daytime reading using external supports to keep her head from drooping after prolonged reading, or reposition (semi- supine or sidelie) to decrease forward head strain/posturing to enable tolerance to longer reading times. LTG Duration 09/22/22 Two Impairment Neck Pain Short Term Goal (STG) Decrease onset of neck pain with pt able to read more times throughout the week. 08/05: Pt reading only on weekends due to lack of time, 1-2 hrs at a time. States she would read more otherwise. Pain doesn't limit her reading . Pain reading rated 3-4/10. STG Duration 08/10/22 08/05/22: Met goal for reading, but pain persists) Culinary Artist Goal (LTG) Decrease neck pain after reading to granddaughter and will be able to tolerate sitting reading to granddaughter LTG Duration 09/22/22 One Impairment Pt lacks Appropriate Self Care HEP. Assisted Goal (LTG) Pt goal is to learn how to manage the pain and keep from coming on. 08/05/22: Pt did not ex this past weekend. LTG Duration 09/22/22 Assessment Summary Assessment Not able to review bone scan, pt will try to get report from MD at next visit 08/13/22. Pt attends with her head not in a full flex position, but ~ 25 deg's flexed. Pt admits to not being consistent with her HEP. Physical Therapy Plan Frequency and Duration Frequency of Treatment 1x/Week Plan of Care Start Date 06/24/22 Plan of Care End Date 09/22/22 Next Visit Focus/Plan Next Note Type Treatment Note Next Visit Plan Review issued HEP and neck and torso rotation (reissue if pt needs). Issue HO for Pec stretch. Obtain bone scan results from pt after she has her f/u visit with the MD on 08/13/22 and assess if C. traction/ compression if appropriate. Add to HEP: If tolerated, BRET with neck extension, shoulder squeeze, hands/knees arm lifts, neck ext strengthening (reinaldo, active resistive & conc /ecc). MH/Estim [neck/UT'] for relaxation. 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
--- NOTE | 2022-08-12 17:43 | PT.OTN ---
Current Diagnoses Postural kyphosis, cervicothoracic region (08/12/22) Unspecified kyphosis, cervical region (08/12/22) Cervicalgia (08/12/22) Physical Therapy Treatment Note PT-OP-A Visit Information Start: 06/18/22 19:18 Freq: Status: Active Protocol: Document 08/12/22 08:14 LRN (Rec: 08/12/22 09:04 LRN [id number]) Out-Patient Physical Therapy Visit Information Visit Information Visit Type Treatment Note Visit Start Time 08:14 Visit Stop Time 08:54 Total Visit Minutes 40 Visit Number 6 Evaluation Information Evaluation Date 06/24/22 Precautions Precautions Back pain PT-OP-B Current Condition Start: 06/18/22 19:18 Freq: Status: Active Protocol: Document 06/24/22 11:18 LRN (Rec: 06/24/22 12:40 LRN [id number]) Current Condition History of Current Condition Onset Date April 2022 Current Complaints L sided neck pain, after sitting awhile, reading, head down awhile. History of Current Condition Had back pain and then started to have neck pain after her back therapy ended. Sometimes neck hurts and has a hard time keeping neck straight when walking. Sometimes really hurts, not all the time . When tired, easier to be painful. Told referring physician and was referred to therapy. Now has pain in the L side of neck (indicating L lateral neck & UT), sometimes difficult holding head up. Couple weeks ago had bone scan test and found she has a bone density problem. Dr. Hull to talk to her at next visit in July. Prior Treatments and Tests None. Back rehabilitation this year. 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 Treatment Goals Patient/Caregiver Goals Pt goal is to learn how to manage the pain and keep from coming on. Pt agreeable to cont therapy for ex's until max improvement made. Prior Functional Status Baseline Function- ADL's Independent Baseline Function- Mobility Independent Baseline Function- Other Pt read nightly. Read to granddaughter 1/2 hour to put to sleep. Current Functional Impairments (Reported) Functional Limitations- ADL's Difficulty sitting without back support. Functional Limitations- Recreation/ Reads to self on weekends, no Hobbies longer reading nightly. Read to granddaughter 1/2 hour to put to sleep. Personal Factors Other Personal Factors That May Effect Reads every week 1-2 days a Therapy/Recovery week. Now trying to do just nighttime reading which was found to be helpful. Takes care of 14-15 month old granddaughter daily 3-9 hrs a day, diaper changes are challenging. PT-OP-C Subjective Start: 06/18/22 19:18 Freq: Status: Active Protocol: Document 08/12/22 08:14 LRN (Rec: 08/12/22 09:04 LRN [id number]) OP-PT Subjective Patient Comments Patient Comments Reports she worked in keeping her head up and did not have neck pain. Walked [place] without onset of neck pain. Did not read to granddaughter this weekend. PT-OP-E Functional Tests Start: 06/18/22 19:18 Freq: Status: Active Protocol: Document 06/24/22 11:18 LRN (Rec: 06/24/22 12:40 LRN [id number]) Functional Tests Apley's Scratch Test Action 1- Left Posterior scapula Action 1- Right Posterior scapula Action 2- Left T3 Action 2- Right T3 Action 3- Left T7 Action 3- Right T7 PT-OP-H Neuro Start: 06/18/22 19:18 Freq: Status: Active Protocol: Document 07/22/22 10:36 LRN (Rec: 07/22/22 11:21 LRN [id number]) Deep Tendon Reflex & Clonus Assessment Deep Tendon Reflex Bilateral Brachioradialis Deep Tendon Reflex 3+ Normal But Brisk Right Tricep Deep Tendon Reflex 3+ Normal But Brisk Bilateral Bicep Deep Tendon Reflex 3+ Normal But Brisk PT-OP-J Posture/Palpation/Skin Start: 06/18/22 19:18 Freq: Status: Active Protocol: Document 06/24/22 11:18 LRN (Rec: 06/24/22 12:40 LRN [id number]) Posture Evaluation Position Sitting Head/C-Spine Posture Side Bent Right,Forward Head T-Spine Posture Increased Kyphosis L-Spine Posture Decreased Lordosis Comments Posture Comments Reverse curvature of neck. Palpation Assessment Location Neck Palpation Location R side of neck: UT; L side of neck: Paraspinals. Palpation Findings Soft Tissue Tightness, Tenderness Palpation Details L side of neck although being side of pain complaints had no palpable tenderness. PT-OP-K Range of Motion Start: 06/18/22 19:18 Freq: Status: Active Protocol: Document 06/24/22 11:18 LRN (Rec: 06/24/22 12:40 LRN [id number]) Cervical Spine Range of Motion Cervical Spine Active Degrees Testing Position Sitting Flexion 40 Extension 22 Rotation Left 50 Rotation Right 52 Lateral Flexion Left 10 Lateral Flexion Right 35 Comments Head position starting: Flex 10 deg's, sidebend 2 deg's. PROM in supine SB ~45 deg's bilaterally; Rot ~ 80 deg's bilaterally. Shoulder Goniometric Range of Motion Shoulder Right Active Testing Position Sitting Flexion 130 Extension 50 Abduction 168 Internal Rotation Behind Back (text) T7 Comments ER to T3 Left Active Testing Position Sitting Flexion 140 Extension 60 Abduction 160 Internal Rotation Behind Back (text) T7 Comments ER to T3 PT-OP-L Special Tests Start: 06/18/22 19:18 Freq: Status: Active Protocol: Document 06/24/22 11:18 LRN (Rec: 06/24/22 12:40 LRN [id number]) Special Tests Cervical Spine Special Tests Vertebral Artery Test Results Negative Bilaterally Comments Vish Rot caused R neck pain. PT-OP-M Strength Start: 06/18/22 19:18 Freq: Status: Active Protocol: Document 06/24/22 11:18 LRN (Rec: 06/24/22 12:40 LRN [id number]) Cervical Spine Strength Cervical Spine Manual Muscle Testing Comments Generally 4-/5 Shoulder Strength Shoulder Manual Muscle Testing Right Comments Generally 4/5 Left Comments Generally 4/5 PT-OP-Q Treatments Start: 06/18/22 19:18 Freq: Status: Active Protocol: Document 08/12/22 08:14 LRN (Rec: 08/12/22 09:04 LRN [id number]) Therapeutic Exercises Supine Exercises Neck Ext Stretch Supine Exercise Name Passive stretch with neck in ext Reps/Minutes 1' hold x 2 Sitting Exercises Reinaldo L SB Sitting Exercise Name Reinaldo L SB - HEP Side left Equipment Used Wall w/folded hand towel & also w/fingertip resist Reps/Minutes 5 SH x 10 Comments Phy assist needed to keep head in neutral Reinaldo neck ext Sitting Exercise Name Reinaldo neck Ext - review of HEP Resistance Wall w/folded hand towel & also w/fingertip resist Reps/Minutes 5 SH x 20 Comments Much Phy assist needed to keep head in neutral Pec stretch Sitting Exercise Name Football Goal post stretch - review of HEP Side bilateral Reps/Minutes 60 f/b active stretch with scapular pinches Comments Extra time for training C. L rot stretch Sitting Exercise Name C. L rot stretch, f/b looking over shldr ex Side left Reps/Minutes 8 SH x 15 C. SB stretch Sitting Exercise Name C SB stretch Side left Reps/Minutes 10 SH x 10 Comments Much cuing to keep head and body upright posture. C. Ext Sitting Exercise Name Active and Isometric C. Ext Equipment Used Sitting unsupported Reps/Minutes 1-2 SH, 15 x 2 Comments Cuing to not go into flexion, phys cuing to further ext ROM Manual Therapy Treatment Soft Tissue Mobilization Neck flexors Body Location Neck Flexors stretch Mobilization Type Myofascial Release Intensity/Depth Superficial Body Position Supine Self-Care/Home Management Treatment Education Patient Education Home Exercise Program Activities Self-Care/Home Management Activities Issued & reviewed pec stretch (3 positions) & neck/torsos rotation, (unreviewed neck dorals glide, head clock, shoulder clock). PT-OP-T Assessment and Plan Start: 06/18/22 19:18 Freq: Status: Active Protocol: Document 08/12/22 08:14 LRN (Rec: 08/12/22 09:04 LRN [id number]) Physical Therapy Assessment Goals Three Impairment Poor awareness of head/neck posturing. Short Term Goal (STG) Pt will be educated in proper head/neck posturing in sit/ stand. STG Duration 08/10/22 (07/01/22: MET GOAL ) Powerplant Operator Goal (LTG) Pt will be able to modify her daytime reading using external supports to keep her head from drooping after prolonged reading, or reposition (semi- supine or sidelie) to decrease forward head strain/posturing to enable tolerance to longer reading times. LTG Duration 09/22/22 Two Impairment Neck Pain Short Term Goal (STG) Decrease onset of neck pain with pt able to read more times throughout the week. 08/05: Pt reading only on weekends due to lack of time, 1-2 hrs at a time. States she would read more otherwise. Pain doesn't limit her reading . Pain reading rated 3-4/10. STG Duration 08/10/22 08/05/22: Met goal for reading, but pain persists) Care Home Goal (LTG) Decrease neck pain after reading to granddaughter and will be able to tolerate sitting reading to granddaughter LTG Duration 09/22/22 One Impairment Pt lacks Appropriate Self Care HEP. Care Home Goal (LTG) Pt goal is to learn how to manage the pain and keep from coming on. 08/05/22: Pt did not ex this past weekend. 08/12/22: HEP: Pec stretch in 3 positions, and review of neck & torso rotation (opp directions). LTG Duration 09/22/22 Progress Towards Goals Progress Comments HEP progressed. Assessment Summary Assessment Pt states she was told she had osteoprosis and has bone scan papers. Pt starting head/ neck posture much improved, although pt may be working on holding posture as she came into therapy. No neck pain this past holiday weekend, but pt did not do reading to her granddaughter. Physical Therapy Plan Frequency and Duration Frequency of Treatment 1x/Week Plan of Care Start Date 06/24/22 Plan of Care End Date 09/22/22 Next Visit Focus/Plan Next Note Type Treatment Note Next Visit Plan Review issued HEP reviewed neck dorals glide, head clock, shoulder clock. Obtain bone scan results from pt after she has her f/u visit with the MD on 08/13/22 and assess if C. traction/ compression if appropriate. Add to HEP: If tolerated, RBET with neck extension, shoulder squeeze, hands/knees arm lifts, neck ext strengthening (reinaldo, active resistive & conc /ecc). MH/Estim [neck/UT'] for relaxation. 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
--- NOTE | 2022-08-19 12:17 | PT.OTN ---
Current Diagnoses Postural kyphosis, cervicothoracic region (08/19/22) Unspecified kyphosis, cervical region (08/19/22) Cervicalgia (08/19/22) Physical Therapy Treatment Note PT-OP-A Visit Information Start: 06/18/22 19:18 Freq: Status: Active Protocol: Document 08/19/22 11:24 LRN (Rec: 08/19/22 12:16 LRN [id number]) Out-Patient Physical Therapy Visit Information Visit Information Visit Type Treatment Note Visit Start Time 11:24 Visit Stop Time 12:05 Total Visit Minutes 41 Visit Number 7 Evaluation Information Evaluation Date 06/24/22 Precautions Precautions Back pain PT-OP-B Current Condition Start: 06/18/22 19:18 Freq: Status: Active Protocol: Document 06/24/22 11:18 LRN (Rec: 06/24/22 12:40 LRN [id number]) Current Condition History of Current Condition Onset Date April 2022 Current Complaints L sided neck pain, after sitting awhile, reading, head down awhile. History of Current Condition Had back pain and then started to have neck pain after her back therapy ended. Sometimes neck hurts and has a hard time keeping neck straight when walking. Sometimes really hurts, not all the time . When tired, easier to be painful. Told referring physician and was referred to therapy. Now has pain in the L side of neck (indicating L lateral neck & UT), sometimes difficult holding head up. Couple weeks ago had bone scan test and found she has a bone density problem. Dr. Hull to talk to her at next visit in July. Prior Treatments and Tests None. Back rehabilitation this year. 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 Treatment Goals Patient/Caregiver Goals Pt goal is to learn how to manage the pain and keep from coming on. Pt agreeable to cont therapy for ex's until max improvement made. Prior Functional Status Baseline Function- ADL's Independent Baseline Function- Mobility Independent Baseline Function- Other Pt read nightly. Read to granddaughter 1/2 hour to put to sleep. Current Functional Impairments (Reported) Functional Limitations- ADL's Difficulty sitting without back support. Functional Limitations- Recreation/ Reads to self on weekends, no Hobbies longer reading nightly. Read to granddaughter 1/2 hour to put to sleep. Personal Factors Other Personal Factors That May Effect Reads every week 1-2 days a Therapy/Recovery week. Now trying to do just nighttime reading which was found to be helpful. Takes care of 14-15 month old granddaughter daily 3-9 hrs a day, diaper changes are challenging. PT-OP-C Subjective Start: 06/18/22 19:18 Freq: Status: Active Protocol: Document 08/19/22 11:24 LRN (Rec: 08/19/22 12:16 LRN [id number]) OP-PT Subjective Patient Comments Patient Comments States she has her bone density scan. Neck pain when looking at laptop or ipad. Has not been reading to granddaughter. PT-OP-E Functional Tests Start: 06/18/22 19:18 Freq: Status: Active Protocol: Document 06/24/22 11:18 LRN (Rec: 06/24/22 12:40 LRN [id number]) Functional Tests Apley's Scratch Test Action 1- Left Posterior scapula Action 1- Right Posterior scapula Action 2- Left T3 Action 2- Right T3 Action 3- Left T7 Action 3- Right T7 PT-OP-H Neuro Start: 06/18/22 19:18 Freq: Status: Active Protocol: Document 07/22/22 10:36 LRN (Rec: 07/22/22 11:21 LRN [id number]) Deep Tendon Reflex & Clonus Assessment Deep Tendon Reflex Bilateral Brachioradialis Deep Tendon Reflex 3+ Normal But Brisk Right Tricep Deep Tendon Reflex 3+ Normal But Brisk Bilateral Bicep Deep Tendon Reflex 3+ Normal But Brisk PT-OP-J Posture/Palpation/Skin Start: 06/18/22 19:18 Freq: Status: Active Protocol: Document 06/24/22 11:18 LRN (Rec: 06/24/22 12:40 LRN [id number]) Posture Evaluation Position Sitting Head/C-Spine Posture Side Bent Right,Forward Head T-Spine Posture Increased Kyphosis L-Spine Posture Decreased Lordosis Comments Posture Comments Reverse curvature of neck. Palpation Assessment Location Neck Palpation Location R side of neck: UT; L side of neck: Paraspinals. Palpation Findings Soft Tissue Tightness, Tenderness Palpation Details L side of neck although being side of pain complaints had no palpable tenderness. PT-OP-K Range of Motion Start: 06/18/22 19:18 Freq: Status: Active Protocol: Document 06/24/22 11:18 LRN (Rec: 06/24/22 12:40 LRN [id number]) Cervical Spine Range of Motion Cervical Spine Active Degrees Testing Position Sitting Flexion 40 Extension 22 Rotation Left 50 Rotation Right 52 Lateral Flexion Left 10 Lateral Flexion Right 35 Comments Head position starting: Flex 10 deg's, sidebend 2 deg's. PROM in supine SB ~45 deg's bilaterally; Rot ~ 80 deg's bilaterally. Shoulder Goniometric Range of Motion Shoulder Right Active Testing Position Sitting Flexion 130 Extension 50 Abduction 168 Internal Rotation Behind Back (text) T7 Comments ER to T3 Left Active Testing Position Sitting Flexion 140 Extension 60 Abduction 160 Internal Rotation Behind Back (text) T7 Comments ER to T3 PT-OP-L Special Tests Start: 06/18/22 19:18 Freq: Status: Active Protocol: Document 06/24/22 11:18 LRN (Rec: 06/24/22 12:40 LRN [id number]) Special Tests Cervical Spine Special Tests Vertebral Artery Test Results Negative Bilaterally Comments Vish Rot caused R neck pain. PT-OP-M Strength Start: 06/18/22 19:18 Freq: Status: Active Protocol: Document 06/24/22 11:18 LRN (Rec: 06/24/22 12:40 LRN [id number]) Cervical Spine Strength Cervical Spine Manual Muscle Testing Comments Generally 4-/5 Shoulder Strength Shoulder Manual Muscle Testing Right Comments Generally 4/5 Left Comments Generally 4/5 PT-OP-Q Treatments Start: 06/18/22 19:18 Freq: Status: Active Protocol: Document 08/19/22 11:24 LRN (Rec: 08/19/22 12:16 LRN [id number]) Cardio Equipment Upper Body Ergometer (UBE) Duration (Minutes) 6 RPM 70 Seat Position 10 Height 2.5 Therapeutic Exercises Supine Exercises Neck Ext Stretch Supine Exercise Name Passive stretch with neck in ext Reps/Minutes 1' hold x 2 Prone Exercises BRET Prone Exercise Name BRET w/neck ext assisted lift Reps/Minutes 10x Comments Phys assit Pec stretch Prone Exercise Name Passive Pec stretch in Football Goal Post position. Side bilateral Reps/Minutes 6' Active Neck Ext Prone Exercise Name Active Neck Ext Reps/Minutes 10x 3, resting pec stretch btn bouts Comments bleach chlorinator and cuing for neck ext motion. Neck ext Prone Exercise Name Passive Neck Ext stretch Reps/Minutes 10' Comments Cuing to bring chest down & relax neck Sitting Exercises Reinaldo neck ext Sitting Exercise Name Reinaldo neck Ext - review of HEP Resistance Wall w/folded hand towel & also w/fingertip resist Reps/Minutes 5 SH x 20 Comments Much Phy assist needed to keep head in neutral C. Ext Sitting Exercise Name Active and Isometric C. Ext Equipment Used Sitting unsupported Reps/Minutes 1-2 SH, 15 x 2 Comments Cuing to not go into flexion, phys cuing to further ext ROM Self-Care/Home Management Treatment Education Other Education Discussed outcome of pt's bone density exam on 05/28/22. Discussed pt could receive cautious Manual therapy to the neck because of osteopenia. Recomended pt talk to MD regarding diet to improve bone density. PT-OP-T Assessment and Plan Start: 06/18/22 19:18 Freq: Status: Active Protocol: Document 08/19/22 11:24 LRN (Rec: 08/19/22 12:16 LRN [id number]) Physical Therapy Assessment Goals Three Impairment Poor awareness of head/neck posturing. Short Term Goal (STG) Pt will be educated in proper head/neck posturing in sit/ stand. STG Duration 08/10/22 (07/01/22: MET GOAL ) Custodial Goal (LTG) Pt will be able to modify her daytime reading using external supports to keep her head from drooping after prolonged reading, or reposition (semi- supine or sidelie) to decrease forward head strain/posturing to enable tolerance to longer reading times. 08/19/22: Pt reporting putting her ipad up high to keep her head up, but onset of pain after awhile. LTG Duration 09/22/22 (08/19/22: Met goal for education, tolerance limited) Two Impairment Neck Pain Short Term Goal (STG) Decrease onset of neck pain with pt able to read more times throughout the week. 08/05: Pt reading only on weekends due to lack of time, 1-2 hrs at a time. States she would read more otherwise. Pain doesn't limit her reading . Pain reading rated 3-4/10. STG Duration 08/10/22 08/05/22: Met goal for reading, but pain persists) Custodial Goal (LTG) Decrease neck pain after reading to granddaughter and will be able to tolerate sitting reading to granddaughter LTG Duration 09/22/22 One Impairment Pt lacks Appropriate Self Care HEP. Dining Room Hostess Goal (LTG) Pt goal is to learn how to manage the pain and keep from coming on. 08/05/22: Pt did not ex this past weekend. 08/12/22: HEP: Pec stretch in 3 positions, and review of neck & torso rotation (opp directions). 08/19/22: Discussed with pt ex 's for onset of pain when looking at computer or ipad. LTG Duration 09/22/22 progressing Assessment Summary Assessment Improved tolerance to upright posture as pt was able to fairly easily obtain upright posture against wall; she was not able to maintain posture however due to weakness and neck flexor tone and habit (pt reports 40 yrs of poor posturing). Sitting posture improved after BRET ex. Bone scan results (08/13/22) indicate spinal osteopenia; therefore caution with C. traction/compression. Physical Therapy Plan Frequency and Duration Frequency of Treatment 1x/Week Plan of Care Start Date 06/24/22 Plan of Care End Date 09/22/22 Next Visit Focus/Plan Next Note Type Treatment Note Next Visit Plan Review issued HEP reviewed neck dorals glide, head clock, shoulder clock. Review & Issue BRET for HEP. Add to HEP: If tolerated, shoulder squeeze, hands/knees arm lifts, neck ext strengthening (reinaldo, active resistive & conc/ecc). MH/Estim [neck/UT'] for relaxation. POC: Strengthen neck extensors, L SB, L rot. Stretch into Ext, L SB/Rot. 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
--- NOTE | 2022-08-26 12:11 | PT.OTN ---
Current Diagnoses Postural kyphosis, cervicothoracic region (08/26/22) Unspecified kyphosis, cervical region (08/26/22) Cervicalgia (08/26/22) Physical Therapy Treatment Note PT-OP-A Visit Information Start: 06/18/22 19:18 Freq: Status: Active Protocol: Document 08/26/22 11:18 LRN (Rec: 08/26/22 12:10 LRN [id number]) Out-Patient Physical Therapy Visit Information Visit Information Visit Type Treatment Note Visit Start Time 11:18 Visit Stop Time 11:58 Total Visit Minutes 40 Visit Number 8 Evaluation Information Evaluation Date 06/24/22 Precautions Precautions Back pain PT-OP-B Current Condition Start: 06/18/22 19:18 Freq: Status: Active Protocol: Document 06/24/22 11:18 LRN (Rec: 06/24/22 12:40 LRN [id number]) Current Condition History of Current Condition Onset Date April 2022 Current Complaints L sided neck pain, after sitting awhile, reading, head down awhile. History of Current Condition Had back pain and then started to have neck pain after her back therapy ended. Sometimes neck hurts and has a hard time keeping neck straight when walking. Sometimes really hurts, not all the time . When tired, easier to be painful. Told referring physician and was referred to therapy. Now has pain in the L side of neck (indicating L lateral neck & UT), sometimes difficult holding head up. Couple weeks ago had bone scan test and found she has a bone density problem. Dr. Hull to talk to her at next visit in July. Prior Treatments and Tests None. Back rehabilitation this year. 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 Treatment Goals Patient/Caregiver Goals Pt goal is to learn how to manage the pain and keep from coming on. Pt agreeable to cont therapy for ex's until max improvement made. Prior Functional Status Baseline Function- ADL's Independent Baseline Function- Mobility Independent Baseline Function- Other Pt read nightly. Read to granddaughter 1/2 hour to put to sleep. Current Functional Impairments (Reported) Functional Limitations- ADL's Difficulty sitting without back support. Functional Limitations- Recreation/ Reads to self on weekends, no Hobbies longer reading nightly. Read to granddaughter 1/2 hour to put to sleep. Personal Factors Other Personal Factors That May Effect Reads every week 1-2 days a Therapy/Recovery week. Now trying to do just nighttime reading which was found to be helpful. Takes care of 14-15 month old granddaughter daily 3-9 hrs a day, diaper changes are challenging. PT-OP-C Subjective Start: 06/18/22 19:18 Freq: Status: Active Protocol: Document 08/26/22 11:18 LRN (Rec: 08/26/22 12:10 LRN [id number]) OP-PT Subjective Patient Comments Patient Comments Once in a while has neck pain at the end of the day and wants to know what to do about it. PT-OP-E Functional Tests Start: 06/18/22 19:18 Freq: Status: Active Protocol: Document 06/24/22 11:18 LRN (Rec: 06/24/22 12:40 LRN [id number]) Functional Tests Apley's Scratch Test Action 1- Left Posterior scapula Action 1- Right Posterior scapula Action 2- Left T3 Action 2- Right T3 Action 3- Left T7 Action 3- Right T7 PT-OP-H Neuro Start: 06/18/22 19:18 Freq: Status: Active Protocol: Document 07/22/22 10:36 LRN (Rec: 07/22/22 11:21 LRN [id number]) Deep Tendon Reflex & Clonus Assessment Deep Tendon Reflex Bilateral Brachioradialis Deep Tendon Reflex 3+ Normal But Brisk Right Tricep Deep Tendon Reflex 3+ Normal But Brisk Bilateral Bicep Deep Tendon Reflex 3+ Normal But Brisk PT-OP-J Posture/Palpation/Skin Start: 06/18/22 19:18 Freq: Status: Active Protocol: Document 06/24/22 11:18 LRN (Rec: 06/24/22 12:40 LRN [id number]) Posture Evaluation Position Sitting Head/C-Spine Posture Side Bent Right,Forward Head T-Spine Posture Increased Kyphosis L-Spine Posture Decreased Lordosis Comments Posture Comments Reverse curvature of neck. Palpation Assessment Location Neck Palpation Location R side of neck: UT; L side of neck: Paraspinals. Palpation Findings Soft Tissue Tightness, Tenderness Palpation Details L side of neck although being side of pain complaints had no palpable tenderness. PT-OP-K Range of Motion Start: 06/18/22 19:18 Freq: Status: Active Protocol: Document 06/24/22 11:18 LRN (Rec: 06/24/22 12:40 LRN [id number]) Cervical Spine Range of Motion Cervical Spine Active Degrees Testing Position Sitting Flexion 40 Extension 22 Rotation Left 50 Rotation Right 52 Lateral Flexion Left 10 Lateral Flexion Right 35 Comments Head position starting: Flex 10 deg's, sidebend 2 deg's. PROM in supine SB ~45 deg's bilaterally; Rot ~ 80 deg's bilaterally. Shoulder Goniometric Range of Motion Shoulder Right Active Testing Position Sitting Flexion 130 Extension 50 Abduction 168 Internal Rotation Behind Back (text) T7 Comments ER to T3 Left Active Testing Position Sitting Flexion 140 Extension 60 Abduction 160 Internal Rotation Behind Back (text) T7 Comments ER to T3 PT-OP-L Special Tests Start: 06/18/22 19:18 Freq: Status: Active Protocol: Document 06/24/22 11:18 LRN (Rec: 06/24/22 12:40 LRN [id number]) Special Tests Cervical Spine Special Tests Vertebral Artery Test Results Negative Bilaterally Comments Vish Rot caused R neck pain. PT-OP-M Strength Start: 06/18/22 19:18 Freq: Status: Active Protocol: Document 06/24/22 11:18 LRN (Rec: 06/24/22 12:40 LRN [id number]) Cervical Spine Strength Cervical Spine Manual Muscle Testing Comments Generally 4-/5 Shoulder Strength Shoulder Manual Muscle Testing Right Comments Generally 4/5 Left Comments Generally 4/5 PT-OP-Q Treatments Start: 06/18/22 19:18 Freq: Status: Active Protocol: Document 08/26/22 11:18 LRN (Rec: 08/26/22 12:10 LRN [id number]) Cardio Equipment Upper Body Ergometer (UBE) Duration (Minutes) 6 RPM 70 Seat Position 10 Height 2.5 Other Fwd/bkwd. Phy & V cuing to keep head in neutral. Therapeutic Exercises Supine Exercises Neck Ext Stretch Supine Exercise Name Passive stretch with neck in ext Reps/Minutes 1' hold x 2 Neck & trunk rot Supine Exercise Name Neck (L rot/L SB) & trunk rot. Side left Prone Exercises BRET thoracic flex Prone Exercise Name BRET rounding Upper T/S w/head in neutral Comments Phys assit and cuing to keep head in neutral and for T/S rounding. BRET Prone Exercise Name BRET w/neck ext (assisted lift) Reps/Minutes 10x Comments Phys assit Pec stretch Prone Exercise Name Passive Pec stretch in Football Goal Post position. Side bilateral Reps/Minutes 5' Comments Much positioning and cuing of head, arm positions for stretch. Active Neck Ext Prone Exercise Name Active Neck Ext Reps/Minutes 10x 3, resting pec stretch btn bouts Comments butter melter and cuing for neck ext motion. Self-Care/Home Management Treatment Education Patient Education Home Exercise Program,Posture Other Education Discussed and educated pt in trying doing neck ext & L SB exercise for pain relief. Discuss and educated pt in strain on L UT/Lev Scap due to her holding her head in chronic flex/R SB-rot. Activities Self-Care/Home Management Activities Issued & reviewed HEP: Passive and active neck rot (L rot/L SB), Sidelie Head w/Arm & Upper body flandreau, Shoulder and Upper Back Stretch with neck extension. PT-OP-T Assessment and Plan Start: 06/18/22 19:18 Freq: Status: Active Protocol: Document 08/26/22 11:18 LRN (Rec: 08/26/22 12:10 LRN [id number]) Physical Therapy Assessment Goals Three Impairment Poor awareness of head/neck posturing. Short Term Goal (STG) Pt will be educated in proper head/neck posturing in sit/ stand. STG Duration 08/10/22 (07/01/22: MET GOAL ) Fdc Goal (LTG) Pt will be able to modify her daytime reading using external supports to keep her head from drooping after prolonged reading, or reposition (semi- supine or sidelie) to decrease forward head strain/posturing to enable tolerance to longer reading times. 08/19/22: Pt reporting putting her ipad up high to keep her head up, but onset of pain after awhile. LTG Duration 09/22/22 (08/19/22: Met goal for education, tolerance limited) Two Impairment Neck Pain Short Term Goal (STG) Decrease onset of neck pain with pt able to read more times throughout the week. 08/05: Pt reading only on weekends due to lack of time, 1-2 hrs at a time. States she would read more otherwise. Pain doesn't limit her reading . Pain reading rated 3-4/10. STG Duration 08/10/22 08/05/22: Met goal for reading, but pain persists) Local Hazmat Driver Goal (LTG) Decrease neck pain after reading to granddaughter and will be able to tolerate sitting reading to granddaughter. 08/26/22: Neck pain 1-2x/week reading LTG Duration 09/22/22 progressing 08/26/22 One Impairment Pt lacks Appropriate Self Care HEP. Local Hazmat Driver Goal (LTG) Pt goal is to learn how to manage the pain and keep from coming on. 08/05/22: Pt did not ex this past weekend. 08/12/22: HEP: Pec stretch in 3 positions, and review of neck & torso rotation (opp directions). 08/19/22: Discussed with pt ex 's for onset of pain when looking at computer or ipad. 08/26/22: HEP: Neck AROM/ PROM for L rot/L SB, sidelie head w/arm & UB circles, head ext w/shoulder and UB stretch. LTG Duration 09/22/22 progressed Progress Towards Goals Progress Comments Progressed HEP. LTG #2 Progressed, pt able to read to granddaughter with pain 2x/week, initially nightly. Assessment Summary Assessment ............ Pt has more control of head ext with BRET ex. She needs phys assist to get neck ext beyond neutral due to reverse curve of C/S. Pt improving with lessening of L sided neck pain with reading to granddaughter. Physical Therapy Plan Frequency and Duration Frequency of Treatment 1x/Week Plan of Care Start Date 06/24/22 Plan of Care End Date 09/22/22 Next Visit Focus/Plan Next Note Type Treatment Note Next Visit Plan Review issued HEP neck dorals glide, head clock, shoulder clock, AROM/PROM for L rot/L SB, sidelie head w/arm & UB circles, head ext w/shoulder and UB stretch. HEP if possible to find: BRET - neck ext & Thoracic flex. Add to HEP: If tolerated, hands/knees arm lifts, neck ext strengthening (lucas, active resistive & conc/ecc). MH/Estim [neck/UT'] for relaxation. POC: Strengthen neck extensors, L SB, L rot. Stretch into Ext, L SB/Rot. 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
--- NOTE | 2022-09-23 17:10 | PT.OTN ---
Current Diagnoses Postural kyphosis, cervicothoracic region (09/23/22) Unspecified kyphosis, cervical region (09/23/22) Cervicalgia (09/23/22) Physical Therapy Treatment Note PT-OP-A Visit Information Start: 06/18/22 19:18 Freq: Status: Active Protocol: Document 09/23/22 10:37 LRN (Rec: 09/23/22 11:26 LRN [id number]) Out-Patient Physical Therapy Visit Information Visit Information Visit Type Progress Note Visit Start Time 10:37 Visit Stop Time 11:26 Total Visit Minutes 49 Visit Number 9 PT-OP-B Current Condition Start: 06/18/22 19:18 Freq: Status: Active Protocol: Document 06/24/22 11:18 LRN (Rec: 06/24/22 12:40 LRN [id number]) Current Condition History of Current Condition Onset Date April 2022 Current Complaints L sided neck pain, after sitting awhile, reading, head down awhile. History of Current Condition Had back pain and then started to have neck pain after her back therapy ended. Sometimes neck hurts and has a hard time keeping neck straight when walking. Sometimes really hurts, not all the time . When tired, easier to be painful. Told referring physician and was referred to therapy. Now has pain in the L side of neck (indicating L lateral neck & UT), sometimes difficult holding head up. Couple weeks ago had bone scan test and found she has a bone density problem. Dr. Hull to talk to her at next visit in July. Prior Treatments and Tests None. Back rehabilitation this year. 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 Treatment Goals Patient/Caregiver Goals Pt goal is to learn how to manage the pain and keep from coming on. Pt agreeable to cont therapy for ex's until max improvement made. Prior Functional Status Baseline Function- ADL's Independent Baseline Function- Mobility Independent Baseline Function- Other Pt read nightly. Read to granddaughter 1/2 hour to put to sleep. Current Functional Impairments (Reported) Functional Limitations- ADL's Difficulty sitting without back support. Functional Limitations- Recreation/ Reads to self on weekends, no Hobbies longer reading nightly. Read to granddaughter 1/2 hour to put to sleep. Personal Factors Other Personal Factors That May Effect Reads every week 1-2 days a Therapy/Recovery week. Now trying to do just nighttime reading which was found to be helpful. Takes care of 14-15 month old granddaughter daily 3-9 hrs a day, diaper changes are challenging. PT-OP-C Subjective Start: 06/18/22 19:18 Freq: Status: Active Protocol: Document 09/23/22 10:37 LRN (Rec: 09/23/22 11:26 LRN [id number]) OP-PT Subjective Patient Comments Patient Comments States neck pain is not very often, happens if stands or sits all day, but if she does ex's then the pain eases. Reading book to granddaughter, will alternate looking down to show her pictures and can now read to her without back pain. Patient Questionnaires Neck Disability Index NDI Score 4 Neck Disability Index Impairment 1 to 19% Impaired (Score 1-9) Quick Dash- Upper Extremity Quick Dash UE Score 4.54 Quick Dash UE Impairment 1 to 19% Impaired (Score 1-19) OP-PT Pain Assessment Pain Assessment Grid Paper Pain Assessment Grid Completed Yes Location R Low Back Pain Location Details R low back Intensity 3 Scale Used Numeric (0 - 10) Neck Pain Location Details Neck Intensity 0 PT-OP-E Functional Tests Start: 06/18/22 19:18 Freq: Status: Active Protocol: Document 06/24/22 11:18 LRN (Rec: 06/24/22 12:40 LRN [id number]) Functional Tests Apley's Scratch Test Action 1- Left Posterior scapula Action 1- Right Posterior scapula Action 2- Left T3 Action 2- Right T3 Action 3- Left T7 Action 3- Right T7 PT-OP-H Neuro Start: 06/18/22 19:18 Freq: Status: Active Protocol: Document 07/22/22 10:36 LRN (Rec: 07/22/22 11:21 LRN [id number]) Deep Tendon Reflex & Clonus Assessment Deep Tendon Reflex Bilateral Brachioradialis Deep Tendon Reflex 3+ Normal But Brisk Right Tricep Deep Tendon Reflex 3+ Normal But Brisk Bilateral Bicep Deep Tendon Reflex 3+ Normal But Brisk PT-OP-J Posture/Palpation/Skin Start: 06/18/22 19:18 Freq: Status: Active Protocol: Document 06/24/22 11:18 LRN (Rec: 06/24/22 12:40 LRN [id number]) Posture Evaluation Position Sitting Head/C-Spine Posture Side Bent Right,Forward Head T-Spine Posture Increased Kyphosis L-Spine Posture Decreased Lordosis Comments Posture Comments Reverse curvature of neck. Palpation Assessment Location Neck Palpation Location R side of neck: UT; L side of neck: Paraspinals. Palpation Findings Soft Tissue Tightness, Tenderness Palpation Details L side of neck although being side of pain complaints had no palpable tenderness. PT-OP-K Range of Motion Start: 06/18/22 19:18 Freq: Status: Active Protocol: Document 06/24/22 11:18 LRN (Rec: 06/24/22 12:40 LRN [id number]) Cervical Spine Range of Motion Cervical Spine Active Degrees Testing Position Sitting Flexion 40 Extension 22 Rotation Left 50 Rotation Right 52 Lateral Flexion Left 10 Lateral Flexion Right 35 Comments Head position starting: Flex 10 deg's, sidebend 2 deg's. PROM in supine SB ~45 deg's bilaterally; Rot ~ 80 deg's bilaterally. Shoulder Goniometric Range of Motion Shoulder Right Active Testing Position Sitting Flexion 130 Extension 50 Abduction 168 Internal Rotation Behind Back (text) T7 Comments ER to T3 Left Active Testing Position Sitting Flexion 140 Extension 60 Abduction 160 Internal Rotation Behind Back (text) T7 Comments ER to T3 PT-OP-L Special Tests Start: 06/18/22 19:18 Freq: Status: Active Protocol: Document 06/24/22 11:18 LRN (Rec: 06/24/22 12:40 LRN [id number]) Special Tests Cervical Spine Special Tests Vertebral Artery Test Results Negative Bilaterally Comments Vish Rot caused R neck pain. PT-OP-M Strength Start: 06/18/22 19:18 Freq: Status: Active Protocol: Document 06/24/22 11:18 LRN (Rec: 06/24/22 12:40 LRN [id number]) Cervical Spine Strength Cervical Spine Manual Muscle Testing Comments Generally 4-/5 Shoulder Strength Shoulder Manual Muscle Testing Right Comments Generally 4/5 Left Comments Generally 4/5 PT-OP-Q Treatments Start: 06/18/22 19:18 Freq: Status: Active Protocol: Document 09/23/22 10:37 LRN (Rec: 09/23/22 11:26 LRN [id number]) Cardio Equipment Recumbent Stepper (Sci-Fit) Duration (Minutes) 8 Resistance 1 Seat Position 11 Other towel roll behind back, phys cues to keep head in neutral. Therapeutic Exercises Supine Exercises Pec stretch Supine Exercise Name Pec stretch in football goal post position (HEP review) Equipment Used Cane Reps/Minutes 10 SH x 10 Comments Extra time taken for determining max stretch Neck & trunk rot Supine Exercise Name Neck (L rot/L SB) & trunk rot (vish>only Left) stretch (HEP review) Side bilateral Equipment Used Cane Reps/Minutes 4' Comments Much Cuing/assist for rot head L/knees R. Held opp stretch due to R LBP. 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 Sitting Exercises Looking over shoulder Sitting Exercise Name Rotating to look behind at top edge of ceiling. (HEP review ) Side left Reps/Minutes 15x Comments Much Phys & V Cuing for wgt shif/trunk rot t head positioning start & end. Posture training Sitting Exercise Name Posture training of head in alignment, head against stick. (HEP review) Equipment Used Dowel stick Reps/Minutes 3' Comments Pt's head drifts fwd and needs cuing to return to neutral. Other Exercises 4 pt Head lifts Other Exercise Name 4 pt: head in neutral w/chin tuck f/b head lift (HEP review) Reps/Minutes 15x Comments Extra time needed to assist with neutral positioining and head lift Self-Care/Home Management Treatment Education Patient Education Home Exercise Program,Pain Management,Posture Activities Self-Care/Home Management Activities Pt encouraged to monitor posture frequently and correct if head droops forward. Discussed throughout therapy her HEP. Pt had no questions regarding her HEP. PT-OP-T Assessment and Plan Start: 06/18/22 19:18 Freq: Status: Active Protocol: Document 09/23/22 10:37 LRN (Rec: 09/23/22 11:26 LRN [id number]) Physical Therapy Assessment Rehab Potential Rehabilitation Potential Excellent Evaluation Complexity Number of Personal Factors/Comorbidities 1-2 Number of Body Systems Impaired 3 Clinical Presentation at Evaluation Stable Impairments Impairments Posture,ROM,Strength Goals Three Impairment Poor awareness of head/neck posturing. Short Term Goal (STG) Pt will be educated in proper head/neck posturing in sit/ stand. STG Duration 08/10/22 (07/01/22: MET GOAL ) Group Home Goal (LTG) Pt will be able to modify her daytime reading using external supports to keep her head from drooping after prolonged reading, or reposition (semi- supine or sidelie) to decrease forward head strain/posturing to enable tolerance to longer reading times. 08/19/22: Pt reporting putting her ipad up high to keep her head up, but onset of pain after awhile. 09/23/22: Can read her books. LTG Duration 09/22/22 (09/23/22: MET GOAL) Two Impairment Neck Pain Short Term Goal (STG) Decrease onset of neck pain with pt able to read more times throughout the week. 08/05: Pt reading only on weekends due to lack of time, 1-2 hrs at a time. States she would read more otherwise. Pain doesn't limit her reading . Pain reading rated 3-4/10. 09/23/22: Reads 30'-2 hrs at a time depending on day and time constraints. Pain rated 0/ 10 with reading. STG Duration 08/10/22 (09/23/22: MET GOAL) Group Home Goal (LTG) Decrease neck pain after reading to granddaughter and will be able to tolerate sitting reading to granddaughter. 08/26/22: Neck pain 1-2x/week reading. 09/23/22: No neck pain after reading to granddaughter. Able to sit and read as long as needed. LTG Duration 09/22/22 (09/23/22: MET GOAL) One Impairment Pt lacks Appropriate Self Care HEP. Group Home Goal (LTG) Pt goal is to learn how to manage the pain and keep from coming on. 08/05/22: Pt did not ex this past weekend. 08/12/22: HEP: Pec stretch in 3 positions, and review of neck & torso rotation (opp directions). 08/19/22: Discussed with pt ex 's for onset of pain when looking at computer or ipad. 08/26/22: HEP: Neck AROM/ PROM for L rot/L SB, sidelie head w/arm & UB circles, head ext w/shoulder and UB stretch. 09/23/22: Pt is able to use her HEP to manage her neck pain. LTG Duration 09/22/22 (09/23/22: MET GOAL) Assessment Summary Assessment The pt needed to be seen today for final review of HEP and progress towards goals. The pt has done well with therapy although her posture continues to be a challenge to normalize. She has met all her goals and reports being able to manage her neck pain through her HEP stretches. The pt demonstrates difficulty maintaining neutral positioning of the head on shoulders due to her head dropping into flexion in a neck flexor tone manner, hindering her ability to maintain neutral spine positioning. The pt indicated on a pain assessment grid no neck pain but R LBP. The pt noted R LBP with full body rotation stretch; therefore ex was limited to painfree range and stressed pt to exercise in painfree range. Physical Therapy Plan Frequency and Duration Frequency of Treatment 1x/Week Plan of Care Start Date 09/22/22 Plan of Care End Date 09/23/22 Therapeutic Interventions Therapeutic Interventions Home Exercise Program,Manual Therapy,Patient/Caregiver Education,Self-Care/Home Management,Therapeutic Exercises Discharge Physical Therapy Discharge Reasons Goals Met Discharge Comments The pt is being discharged from therapy after today's visit to her independent self care HEP; but a new Plan of Care is needed for today's visit. No further therapy is planned after today. Thank you for your referral.
== END 2022-09-24 16:26 | disposition home or self-care (01) ==
LOC: PHYS 10:30
PROVIDERS: Family Provider Internal Medicine; PCP Internal Medicine; Referring Provider Internal Medicine; Visit Provider Internal Medicine
DX: M54.2 Cervicalgia (principal); M40.03 Postural kyphosis, cervicothoracic region; M40.202 Unspecified kyphosis, cervical region
CPT/HCPCS: 97110; 97140; 97162; 97535

== ENCOUNTER → 2023-04-19 11:47 | Outpatient (CLI) | payer MEDICARE, SELFPAY ==
--- NOTE | 2023-04-19 11:48 | DI.RAD.S_ITS ---
PROCEDURE: XR LUMBAR SPINE MIN 4V INDICATIONS: worsening SI joint symptoms TECHNIQUE: 5 views of the lumbar spine were acquired, including bilateral oblique views. COMPARISON: None. FINDINGS: Bones: Severe degenerative changes of the lumbar spine are seen with levoscoliosis in the left apex at L4. Multilevel disc disease and anterior osteophytes. Facet arthrosis in the lower lumbar spine. The sacroiliac joints are normal. Soft tissues: Overlying bowel gas pattern is normal. No suspicious soft tissue calcifications. Oblique images: No pars defects. IMPRESSION: Dextroscoliosis and multilevel degenerative changes with severe disc disease and facet arthropathy. Dictated by: Usama Clancy M.D. on 04/19/2023 at 15:37 Approved by: Usama Clancy M.D. on 04/19/2023 at 15:38
== END ==
PROVIDERS: Family Provider Internal Medicine; PCP Nurse Practitioner; Referring Provider Nurse Practitioner; Visit Provider Nurse Practitioner
DX: M51.16 Intervertebral disc disorders with radiculopathy, lumbar region (principal); M47.26 Other spondylosis with radiculopathy, lumbar region; M41.9 Scoliosis, unspecified
CPT/HCPCS: 72110

== ENCOUNTER → 2023-08-02 11:47 | Outpatient (CLI) | payer MEDICARE, SELFPAY ==
[2023-08-02 13:44] LABS: Alanine Aminotransferase 34 IU/L (<35); Albumin 4.1 g/dL (3.5-5.0); Albumin Globulin Ratio 1.4 (1.0-2.8); Alkaline Phosphatase 78 U/L (38-126); Aspartate Aminotransferase 35 IU/L (14-36); BUN Creatinine Ratio 20.5 (6-22); Bilirubin Total 0.7 mg/dL (0.2-1.3); Blood Urea Nitrogen 16 mg/dL (7-17); Calcium 9.5 mg/dL (8.4-10.2); Carbon Dioxide 28 mmol/L (22-32); Chloride 104 mmol/L (98-107); Estimated Glomerular Filt Rate > 60 mL/min (>60); Glucose 93 mg/dL (80-110); HEMOLYSIS < 15 (0-50); Potassium 4.2 mmol/L (3.4-5.1); Sodium 139 mmol/L (137-145); Total Protein 7.1 g/dL (6.3-8.2)
[2023-08-02 13:57] LABS: Free T4, Direct Thyroxine 1.33 ng/dL (0.78-2.19)
[2023-08-02 14:11] LABS: Thyroid Stimulating Hormone 1.39 uIU/mL (0.47-4.68)
[2023-08-02 15:51] LABS: Vitamin D 25 Hydroxy (D3) 58.2 ng/mL (30.0-100.0)
[2023-08-05 08:08] LABS: Parathyroid Hormone Int 30 pg/mL (15-65)
[2023-08-05 12:35] LABS: Creatinine, Urine 36.9 mg/dL (Not Estab.); N-telo/Creat. Ratio 13 (0-89); N-telopeptide 41 nmol BCE (Not Estab.)
== END ==
PROVIDERS: Family Provider Internal Medicine; PCP Nurse Practitioner; Referring Provider Internal Medicine Endocrinology, Diabetes & Metabolism; Visit Provider Internal Medicine Endocrinology, Diabetes & Metabolism
DX: M81.0 Age-related osteoporosis without current pathological fracture (principal)
CPT/HCPCS: 36415; 80053; 82306; 82523; 82570; 83970; 84439; 84443

== ENCOUNTER → 2023-08-04 07:58 | Outpatient (CLI) | payer MEDICARE, SELFPAY | PROVIDERS: Family Provider Internal Medicine; PCP Nurse Practitioner; Referring Provider Internal Medicine Endocrinology, Diabetes & Metabolism; Visit Provider Internal Medicine Endocrinology, Diabetes & Metabolism | DX: M81.0 Age-related osteoporosis without current pathological fracture (principal) | CPT/HCPCS: 82340; 82570 ==

== ENCOUNTER → 2023-08-18 12:38 | Outpatient (CLI) | payer MEDICARE, SELFPAY ==
--- NOTE | 2023-08-18 | DI.RAD.S_ITS ---
PROCEDURE: XR LUMBAR SPINE MIN 4V INDICATIONS: OSTEOPOROSIS TECHNIQUE: 3 views of the lumbar spine acquired. COMPARISON: [facility], CR, XR LUMBAR SPINE MIN 4V, 04/19/2023, 11:59. FINDINGS: Bones: 5 nonrib-bearing vertebrae are present. Scoliosis. Facet joint hypertrophy. Vertebral body osteophytes. No suspicious bony lesions. Soft tissues: Prominent stool in the colon. No suspicious soft tissue calcifications. IMPRESSION: No compression fracture identified. Scoliosis. Dictated by: Shayne Abreu M.D. on 08/18/2023 at 17:16 Approved by: Shayne Abreu M.D. on 08/18/2023 at 17:19
--- NOTE | 2023-08-18 | DI.RAD.S_ITS ---
PROCEDURE: XR THORACIC SPINE 3V INDICATIONS: OSTEOPOROSIS TECHNIQUE: 3 views of the thoracic spine were acquired. COMPARISON: [facility], CR, XR LUMBAR SPINE MIN 4V, 08/18/2023, 12:47. FINDINGS: Bones: No fractures or dislocations. No suspicious bony lesions. Scoliosis. 12 pairs of ribs are noted, and appear intact where visualized. Soft tissues: No paravertebral stripe thickening. IMPRESSION: No thoracic compression fracture. Dictated by: Shayne Abreu M.D. on 08/18/2023 at 17:13 Approved by: Shayne Abreu M.D. on 08/18/2023 at 17:16
== END ==
PROVIDERS: Family Provider Internal Medicine; PCP Nurse Practitioner; Referring Provider Internal Medicine Endocrinology, Diabetes & Metabolism; Visit Provider Internal Medicine Endocrinology, Diabetes & Metabolism
DX: M81.0 Age-related osteoporosis without current pathological fracture (principal); M41.9 Scoliosis, unspecified
CPT/HCPCS: 72072; 72100

== ENCOUNTER → 2023-08-25 15:11 | Outpatient (CLI) | payer MEDICARE, SELFPAY ==
--- NOTE | 2023-08-25 15:13 | DI.MG.S_ITS ---
BILATERAL DIGITAL SCREENING MAMMOGRAM 3D/2D WITH CAD: 08/25/2023 CLINICAL: Routine screening. Comparison is made to exams dated: 07/29/2022 mammogram, 07/14/2021 mammogram - [facility], and 05/05/2020 mammogram - outside facility. Both breasts are extremely dense, which lowers the sensitivity of mammography (category d />75% glandular tissue). Current study was also evaluated with a Computer Aided Detection (CAD) system. There is a possible developing asymmetry in the left breast posterior depth superior region seen on the mediolateral oblique view only. There is architectural distortion associated with the asymmetry. No other significant masses, calcifications, or other findings are seen in either breast. IMPRESSION: INCOMPLETE: NEEDS ADDITIONAL IMAGING EVALUATION The possible developing asymmetry in the left breast is indeterminate. Additional views with possible ultrasound are recommended. Based on the Tyrer Cuzick model (a risk assessment model) the patient's lifetime risk is 8.7% and her 10 year risk is 0.0%. According to the ACR, ACS, and NCCN guidelines, an annual breast MRI exam along with mammogram is recommended if the patient's lifetime risk is 20% or greater. This exam was interpreted at Station ID: [id number]. NOTE: For mammograms, a report in lay terms will be sent to the patient. Approximately 15% of breast malignancies will not be visualized mammographically. In the management of a palpable breast mass, a negative mammogram must not discourage biopsy of a clinically suspicious lesion. Electronically Signed By: Mitzy polo/carie:08/26/2023 12:10:42 letter sent: Additional Imaging Needed ACR BI-RADS Category 0: Incomplete [id number]
== END ==
PROVIDERS: Family Provider Internal Medicine; PCP Nurse Practitioner; Referring Provider Nurse Practitioner; Visit Provider Nurse Practitioner
DX: Z12.31 Encounter for screening mammogram for malignant neoplasm of breast (principal)
CPT/HCPCS: 77063; 77067

== ENCOUNTER → 2023-09-01 13:11 | Outpatient (CLI) | payer MEDICARE, SELFPAY ==
[2023-09-01 15:02] LABS: BUN Creatinine Ratio 16.4 (6-22); Blood Urea Nitrogen 11 mg/dL (7-17); Calcium 9.9 mg/dL (8.4-10.2); Carbon Dioxide 27 mmol/L (22-32); Chloride 104 mmol/L (98-107); Estimated Glomerular Filt Rate > 60 mL/min (>60); Glucose 114 mg/dL (80-110); HEMOLYSIS 16 (0-50); Potassium 4.6 mmol/L (3.4-5.1); Sodium 137 mmol/L (137-145)
== END ==
PROVIDERS: Family Provider Internal Medicine; PCP Nurse Practitioner; Referring Provider Internal Medicine Endocrinology, Diabetes & Metabolism; Visit Provider Internal Medicine Endocrinology, Diabetes & Metabolism
DX: M81.0 Age-related osteoporosis without current pathological fracture (principal)
CPT/HCPCS: 36415; 80048

== ENCOUNTER → 2023-09-22 11:58 | Outpatient (CLI) | payer MEDICARE, SELFPAY ==
--- NOTE | 2023-09-22 12:00 | DI.MG.S_ITS ---
UNILATERAL LEFT DIGITAL DIAGNOSTIC MAMMOGRAM 3D/2D WITH ADDITIONAL VIEWS: 09/22/2023 CLINICAL: Additional evaluation requested from prior study. Comparison is made to exams dated: 08/25/2023 mammogram, 07/29/2022 mammogram, and 07/14/2021 mammogram - [facility]. The left breast is extremely dense, which lowers the sensitivity of mammography (category d />75% glandular tissue). The possible benign asymmetry in the left breast posterior depth superior region seen on the mediolateral oblique view only is not seen in additional views. No other significant masses or calcifications are seen in the breast. IMPRESSION: BENIGN There is no mammographic evidence of malignancy. Return to annual mammogram screening schedule is recommended. Based on the Tyrer Cuzick model (a risk assessment model) the patient's lifetime risk is 8.7% and her 10 year risk is 0.0%. According to the ACR, ACS, and NCCN guidelines, an annual breast MRI exam along with mammogram is recommended if the patient's lifetime risk is 20% or greater. This exam was interpreted at Station ID: [id number]. NOTE: For mammograms, a report in lay terms will be sent to the patient. Approximately 15% of breast malignancies will not be visualized mammographically. In the management of a palpable breast mass, a negative mammogram must not discourage biopsy of a clinically suspicious lesion. Electronically Signed By: Mercy mckeon/:09/22/2023 12:26:08 letter sent: Normal Exam ACR BI-RADS Category 2: Benign Finding(s) [id number]
== END ==
LOC: MAMMO 11:59
PROVIDERS: Family Provider Internal Medicine; PCP Nurse Practitioner; Referring Provider Nurse Practitioner; Visit Provider Nurse Practitioner
DX: R92.8 Other abnormal and inconclusive findings on diagnostic imaging of breast (principal)
CPT/HCPCS: 77065; G0279

== ENCOUNTER → 2023-09-26 12:54 | Outpatient (CLI) | payer MEDICARE, SELFPAY ==
[2023-09-26 16:23] LABS: BUN Creatinine Ratio 17.7 (6-22); Blood Urea Nitrogen 14 mg/dL (7-17); Calcium 9.5 mg/dL (8.4-10.2); Carbon Dioxide 27 mmol/L (22-32); Chloride 103 mmol/L (98-107); Estimated Glomerular Filt Rate > 60 mL/min (>60); Glucose 78 mg/dL (80-110); HEMOLYSIS < 15 (0-50); Potassium 4.4 mmol/L (3.4-5.1); Sodium 137 mmol/L (137-145)
[2023-09-29 14:42] LABS: Creatinine, Urine 45.9 mg/dL (Not Estab.); N-telo/Creat. Ratio 19 (0-89); N-telopeptide 78 nmol BCE (Not Estab.)
[2023-09-30 06:32] LABS: Parathyroid Hormone Int 32 pg/mL (15-65)
== END ==
LOC: LAB 12:56
PROVIDERS: Family Provider Internal Medicine; PCP Nurse Practitioner; Referring Provider Internal Medicine Endocrinology, Diabetes & Metabolism; Visit Provider Internal Medicine Endocrinology, Diabetes & Metabolism
DX: M81.0 Age-related osteoporosis without current pathological fracture (principal)
CPT/HCPCS: 36415; 80048; 82523; 82570; 83970